=== PATIENT | female | born 1985 | race Caucasian/White ===

== ENCOUNTER 2018-11-14 19:00 | Emergency (ER) | payer MEDICAID ==
[~2018-11-14] VITALS: Ht 170.2 cm; Wt 54.0 kg
[~2018-11-14 19:00] MED LIST: ESOM20CA PO; HYDR1TAB PO; KEP500T PO; METO5TAB98 PO; PHE25R PR; PROM25SU46 RC; PROM25TA14 PO; ZOF4T PO; [UNRECOGNIZED DRUG - CODE] MT
[2018-11-14] MEDS ORDERED: diphenhydrAMINE 50 mg/ml inj IV ONE (20:00)
[2018-11-14] MEDS ORDERED: normal saline 1000ML IV soln IVB ONE (20:00)
[2018-11-14] MEDS ORDERED: haloperidol lactate 5mg/ml inj IM ONE ×2 (20:00→20:20)
[2018-11-14] MEDS ORDERED: ondansetron/PF 4mg/2ml inj IV ONE (20:00)
[2018-11-14] MEDS ORDERED: levetiracetam inj 1,000 MG in normal saline 100ml IV soln 90 ML IV STA (20:27)
[2018-11-14] MEDS ORDERED: levetiracetam-NS 1000mg/100ml 100 ML IV STA (20:30)
[2018-11-14 20:41] LABS: BASOPHILS % (AUTO) 0.1 % (0-1); EOSINOPHILS % (AUTO) 0 % (0-6); HEMATOCRIT 42.5 % (35.0-45.0); HEMOGLOBIN 14.3 g/dl (12.0-16.0); LYMPHOCYTES # (AUTO) 0.9 X10'3 (1.1-4.8); LYMPHOCYTES % (AUTO) 6.2 % (21-51); MEAN CORPUSCULAR HEMOGLOBIN 30.7 PG (27.0-31.0); MEAN CORPUSCULAR HGB CONC 33.7 g/dL (33.0-36.5); MEAN PLATELET VOLUME 7.8 FL (7.4-10.4); MONOCYTES # (AUTO) 0.6 X10'3 (0-0.9); MONOCYTES % (AUTO) 3.9 % (2-12); NEUTROPHILS # (AUTO) 12.7 X10'3 (1.8-7.7); NEUTROPHILS % (AUTO) 89.8 % (42-75); PLATELET COUNT 285 X10'3 (140-440); RED BLOOD COUNT 4.67 X10'6 (4.20-5.60); RED CELL DISTRIBUTION WIDTH 13.1 % (11.5-14.5); WHITE BLOOD COUNT 14.1 X10'3 (4.5-11.0)
[2018-11-14 20:52] LABS: ANION GAP 9 (8-16); BLOOD UREA NITROGEN 12 MG/DL (7-18); BUN/CREATININE RATIO 17.4 (6.6-38.0); CHLORIDE 98 MMOL/L (99-107); CREATININE 0.69 MG/DL (0.40-0.90); GLUCOSE 122 MG/DL (70-104); POTASSIUM 3.3 MMOL/L (3.5-5.1); SODIUM 136 MMOL/L (135-145); TOTAL CARBON DIOXIDE 29.4 MMOL/L (24-32)
[2018-11-14 20:53] LABS: ALANINE AMINOTRANSFERASE 16 U/L (12-78); ALBUMIN 3.9 G/DL (3.4-5.0); ALBUMIN/GLOBULIN RATIO 1.2 (1.1-1.5); ALKALINE PHOSPHATASE 74 IU/L (46-116); ASPARTATE AMINO TRANSFERASE 15 U/L (10-37); BILIRUBIN,TOTAL 0.5 MG/DL (0.1-1.0); CALCIUM 9.2 MG/DL (8.5-10.1); LIPASE 78 U/L (73-393); TOTAL PROTEIN 7.1 G/DL (6.4-8.2); eGFR > 90 ML/MIN
[2018-11-14] MEDS ORDERED: ONDA4TAB6 PO (21:20)
[2018-11-14] MEDS ORDERED: PHE25R PR (22:07)
[2018-11-14 22:09] VITALS: BP 112/65
== END 2018-11-14 22:18 | disposition home or self-care (01) ==
LOC: ER 19:00
DX: G43.A0 Cyclical vomiting, in migraine, not intractable (principal); G40.909 Epilepsy, unspecified, not intractable, without status epilepticus; I10 Essential (primary) hypertension; F12.90 Cannabis use, unspecified, uncomplicated; Z56.0 Unemployment, unspecified; Z90.49 Acquired absence of other specified parts of digestive tract; Z98.51 Tubal ligation status; Z88.5 Allergy status to narcotic agent; Z88.8 Allergy status to other drugs, medicaments and biological substances; Z79.899 Other long term (current) drug therapy
CPT/HCPCS: 36415; 71045; 80053; 83690; 85025; 93005; 96365; 96372; 96375; 99284; J1200; J1630; J1953; J2405; J7030

== ENCOUNTER 2018-11-21 07:09 | Inpatient (IN) | payer MEDICAID | END 2018-11-24 13:19 | disposition home or self-care (01) | LOC: ER 07:09 → ED HOLD 16:17 → SUR 3N 19:05 ==

== ENCOUNTER 2019-01-13 17:24 | Emergency (ER) | payer MEDICAID ==
[~2019-01-13] VITALS: Ht 170.2 cm; Wt 53.2 kg
[~2019-01-13 17:24] MED LIST changes: +BUSP10TA3 PO; -ESOM20CA PO; -HYDR1TAB PO; -METO5TAB98 PO; +METR500T PO; +MULT-933 PO; +ONDA8TAB13 PO; -PHE25R PR; -PROM25SU46 RC; -PROM25TA14 PO; +TRAZ-218 PO; -ZOF4T PO; -[UNRECOGNIZED DRUG - CODE] MT
[2019-01-13] MEDS ORDERED: levetiracetam inj 1,500 MG in normal saline 100ml IV soln 85 ML IV ONE (17:35)
[2019-01-13] MEDS ORDERED: LORazepam 2 mg/ml vial IM ONE (17:35)
[2019-01-13] MEDS ORDERED: fentaNYL/PF 50MCG/1 ML 2ML syringe IV ONE (17:45)
[2019-01-13] MEDS ORDERED: metoclopramide 5 mg/ml inj IV ONE (17:45)
[2019-01-13] MEDS ORDERED: normal saline 1000ML IV soln IVB ONE (17:45)
[2019-01-13] MEDS ORDERED: diphenhydrAMINE 50 mg/ml inj IV ONE (17:45)
[2019-01-13] MEDS ORDERED: ondansetron/PF 4mg/2ml inj IV ONE (17:45)
[2019-01-13 18:17] LABS: BASOPHILS # (AUTO) 0.1 X10'3 (0-0.2); BASOPHILS % (AUTO) 0.4 % (0-1); EOSINOPHILS % (AUTO) 0.1 % (0-6); HEMATOCRIT 47.9 % (35.0-45.0); HEMOGLOBIN 16.7 g/dl (12.0-16.0); LYMPHOCYTES # (AUTO) 2.3 X10'3 (1.1-4.8); LYMPHOCYTES % (AUTO) 19.3 % (21-51); MEAN CORPUSCULAR HEMOGLOBIN 30.3 PG (27.0-31.0); MEAN CORPUSCULAR HGB CONC 34.9 g/dL (33.0-36.5); MEAN CORPUSCULAR VOLUME 86.8 FL (78-98); MEAN PLATELET VOLUME 7.7 FL (7.4-10.4); MONOCYTES # (AUTO) 0.9 X10'3 (0-0.9); MONOCYTES % (AUTO) 7.4 % (2-12); NEUTROPHILS # (AUTO) 8.7 X10'3 (1.8-7.7); NEUTROPHILS % (AUTO) 72.8 % (42-75); PLATELET COUNT 523 X10'3 (140-440); RED BLOOD COUNT 5.52 X10'6 (4.20-5.60); RED CELL DISTRIBUTION WIDTH 12.9 % (11.5-14.5)
[2019-01-13 18:40] LABS: ALANINE AMINOTRANSFERASE 21 U/L (12-78); ALBUMIN 4.6 G/DL (3.4-5.0); ALBUMIN/GLOBULIN RATIO 1.3 (1.1-1.5); ALKALINE PHOSPHATASE 116 IU/L (46-116); ANION GAP 11 (8-16); ASPARTATE AMINO TRANSFERASE 10 U/L (10-37); BILIRUBIN,TOTAL 0.5 MG/DL (0.1-1.0); BLOOD UREA NITROGEN 4 MG/DL (7-18); BUN/CREATININE RATIO 5.1 (6.6-38.0); CALCIUM 10.5 MG/DL (8.5-10.1); CHLORIDE 90 MMOL/L (99-107); CREATININE 0.79 MG/DL (0.40-0.90); GLUCOSE 132 MG/DL (70-104); MAGNESIUM 1.9 MG/DL (1.5-2.4); SODIUM 133 MMOL/L (135-145); TOTAL CARBON DIOXIDE 32.3 MMOL/L (24-32); TOTAL PROTEIN 8.2 G/DL (6.4-8.2); eGFR 83 ML/MIN
[2019-01-13 18:50] LABS: POTASSIUM 2.7 MMOL/L (3.5-5.1)
[2019-01-13] MEDS ORDERED: potassium Cl 10 mEq/100mL bag IV ONE (19:00)
[2019-01-13] MEDS ORDERED: potassium 10mEq/100ml NS w/LIDOcaine (10mg/bag) IV ONE (19:01)
[2019-01-13] MEDS: potassium 10mEq/100ml NS w/LIDOcaine (10mg/bag) IV SCH ×2 (19:29→20:19)
[2019-01-13] MEDS ORDERED: normal saline 1000ml 1,000 ML IV ONE (19:40)
[2019-01-13 19:43] LABS: URINE HCG NEGATIVE (NEG)
[2019-01-13 19:48] LABS: CLARITY,URINE CLEAR (Clear); COLOR,URINE STRAW (Yellow); GLUCOSE, URINE NEGATIVE (Neg); KETONES,URINE NEGATIVE (Neg); LEUKOCYTE ESTERASE ,URINE NEGATIVE (Neg); NITRITES, URINE NEGATIVE (Neg); OCCULT BLOOD,URINE NEGATIVE (Neg); PROTEIN,URINE NEGATIVE (Neg); UROBILINOGEN,URINE 0.2 E.U/dL (0.2-1.0)
[2019-01-13 19:53] LABS: UA COLLECTION TYPE STRAIGHT CATH
[2019-01-13] MEDS ORDERED: ketorolac trometh. 30mg/ml inj. IV ONE (20:10)
[2019-01-13 20:12] LABS: URINE AMPHETAMINE SCREEN NEGATIVE (Neg); URINE BARBITUATE SCREEN NEGATIVE (Neg); URINE BENZODIAZEPINES SCREEN NEGATIVE (Neg); URINE CANNABINOID SCREEN POSITIVE (Neg); URINE COCAINE SCREEN NEGATIVE (Neg); URINE METHADONE SCREEN NEGATIVE (Neg); URINE OPIATE SCREEN NEGATIVE (Neg); URINE PHENCYCLIDINE SCREEN NEGATIVE (Neg)
[2019-01-13 20:41] VITALS: BP 125/88
[2019-01-13 20:50] LABS: INR 1.2 INR; PARTIAL THROMBOPLASTIN TIME 26 SECONDS (22-32)
[2019-01-13] MEDS ORDERED: ONDA8TAB6 PO (21:01)
[2019-01-13] MEDS ORDERED: PHE25R PR (21:01)
[2019-01-13] MEDS ORDERED: POTA20TA19 PO (21:01)
== END 2019-01-13 21:26 | disposition home or self-care (01) ==
LOC: ER 17:25
DX: G43.A0 Cyclical vomiting, in migraine, not intractable (principal); R10.84 Generalized abdominal pain; I10 Essential (primary) hypertension; F12.90 Cannabis use, unspecified, uncomplicated; Z56.0 Unemployment, unspecified; Z90.49 Acquired absence of other specified parts of digestive tract; Z98.51 Tubal ligation status; Z88.5 Allergy status to narcotic agent; Z88.8 Allergy status to other drugs, medicaments and biological substances; Z79.899 Other long term (current) drug therapy
CPT/HCPCS: 36415; 71045; 71046; 80053; 80305; 81003; 81025; 83605; 83735; 84145; 84484; 85025; 85610; 85730; 87040; 93005; 96361; 96365; 96372; 96375; 99284; J1200; J1885; J1953; J2060; J2405; J2765; J3010; J3480; J7030

== ENCOUNTER 2019-02-11 08:23 | Emergency (ER) | payer MEDICAID ==
[~2019-02-11] VITALS: Ht 170.2 cm; Wt 54.5 kg
[~2019-02-11 08:23] MED LIST changes: +ONDA8TAB6 PO; +PHE25R PR; +POTA20TA19 PO; -TRAZ-218 PO; +TRAZ-251 PO
[2019-02-11] MEDS ORDERED: ondansetron/PF 4mg/2ml inj IV ONE (08:30)
[2019-02-11] MEDS ORDERED: metoclopramide 5 mg/ml inj IV ONE (08:30)
[2019-02-11] MEDS ORDERED: levetiracetam inj 1,000 MG in normal saline 100ml IV soln 90 ML IV ONE (08:30)
[2019-02-11] MEDS ORDERED: normal saline 1000ML IV soln IVB ONE ×2 (08:30)
[2019-02-11] MEDS ORDERED: LORazepam 2 mg/ml vial IV ONE (08:30)
[2019-02-11] MEDS ORDERED: diphenhydrAMINE 50 mg/ml inj IV ONE (08:35)
[2019-02-11] MEDS ORDERED: fentaNYL/PF 50MCG/1 ML 2ML syringe IV ONE ×2 (09:05→11:30)
[2019-02-11 09:25] LABS: ALANINE AMINOTRANSFERASE 19 U/L (12-78); ALBUMIN/GLOBULIN RATIO 1.3 (1.1-1.5); ALKALINE PHOSPHATASE 87 IU/L (46-116); ANION GAP 14 (8-16); ASPARTATE AMINO TRANSFERASE 17 U/L (10-37); BILIRUBIN,TOTAL 0.5 MG/DL (0.1-1.0); BLOOD UREA NITROGEN 10 MG/DL (7-18); BUN/CREATININE RATIO 10.9 (6.6-38.0); CALCIUM 9.8 MG/DL (8.5-10.1); CHLORIDE 100 MMOL/L (99-107); CREATININE 0.92 MG/DL (0.40-0.90); GLUCOSE 155 MG/DL (70-104); POTASSIUM 3.2 MMOL/L (3.5-5.1); SODIUM 141 MMOL/L (135-145); eGFR 69 ML/MIN
[2019-02-11 09:32] LABS: LIPASE 51 U/L (73-393)
[2019-02-11 09:33] LABS: BETA HCG,QUANTITATIVE < 1.0 mIU/ml
[2019-02-11] MEDS ORDERED: potassium 10mEq/100ml NS w/LIDOcaine (10mg/bag) IV ONE (09:40)
[2019-02-11 10:44] LABS: BASOPHILS % (AUTO) 0.3 % (0-1); EOSINOPHILS % (AUTO) 0 % (0-6); HEMATOCRIT 31.8 % (35.0-45.0); HEMOGLOBIN 11.3 g/dl (12.0-16.0); LYMPHOCYTES # (AUTO) 0.4 X10'3 (1.1-4.8); LYMPHOCYTES % (AUTO) 3.9 % (21-51); MEAN CORPUSCULAR HEMOGLOBIN 31.5 PG (27.0-31.0); MEAN CORPUSCULAR HGB CONC 35.4 g/dL (33.0-36.5); MEAN CORPUSCULAR VOLUME 89.1 FL (78-98); MEAN PLATELET VOLUME 8.1 FL (7.4-10.4); MONOCYTES # (AUTO) 0.4 X10'3 (0-0.9); MONOCYTES % (AUTO) 3.3 % (2-12); NEUTROPHILS % (AUTO) 92.5 % (42-75); PLATELET COUNT 266 X10'3 (140-440); RED BLOOD COUNT 3.57 X10'6 (4.20-5.60); WHITE BLOOD COUNT 10.9 X10'3 (4.5-11.0)
[2019-02-11 10:54] LABS: URINE AMPHETAMINE SCREEN NEGATIVE (Neg); URINE BARBITUATE SCREEN NEGATIVE (Neg); URINE BENZODIAZEPINES SCREEN NEGATIVE (Neg); URINE CANNABINOID SCREEN POSITIVE (Neg); URINE COCAINE SCREEN NEGATIVE (Neg); URINE METHADONE SCREEN NEGATIVE (Neg); URINE OPIATE SCREEN NEGATIVE (Neg); URINE PHENCYCLIDINE SCREEN NEGATIVE (Neg)
[2019-02-11 10:55] LABS: CLARITY,URINE SLIGHTLY CLOUDY (Clear); COLOR,URINE YELLOW (Yellow); GLUCOSE, URINE NEGATIVE (Neg); KETONES,URINE 40 mg/dl (Neg); LEUKOCYTE ESTERASE ,URINE NEGATIVE (Neg); NITRITES, URINE NEGATIVE (Neg); OCCULT BLOOD,URINE NEGATIVE (Neg); PROTEIN,URINE 100 mg/dl (Neg); UROBILINOGEN,URINE 0.2 E.U/dL (0.2-1.0)
[2019-02-11 11:14] LABS: UA COLLECTION TYPE STRAIGHT CATH
[2019-02-11 11:21] LABS: SQUAMOUS EPITHELIAL CELL,UR MANY /LPF (FEW)
[2019-02-11 11:22] LABS: AMORPHOUS PHOSPHATES 1+
[2019-02-11 11:23] LABS: BACTERIA,URINE FEW /HPF (Neg); RBC,URINE NONE SEEN /HPF (0-2)
[2019-02-11 11:24] LABS: WBC,URINE NONE SEEN /HPF (0-4)
[2019-02-11] MEDS ORDERED: ketorolac trometh. 30mg/ml inj. IV ONE (11:30)
[2019-02-11] MEDS ORDERED: dextrose 5%-normal saline 1,000 ML IV ONE (11:30)
[2019-02-11 12:43] VITALS: BP 133/96
== END 2019-02-11 12:46 | disposition home or self-care (01) ==
LOC: ER 08:24
DX: G43.A0 Cyclical vomiting, in migraine, not intractable (principal); E87.6 Hypokalemia; R10.84 Generalized abdominal pain; F12.90 Cannabis use, unspecified, uncomplicated; I10 Essential (primary) hypertension; Z56.0 Unemployment, unspecified; Z90.49 Acquired absence of other specified parts of digestive tract; Z98.51 Tubal ligation status; Z88.5 Allergy status to narcotic agent; Z88.8 Allergy status to other drugs, medicaments and biological substances; Z79.899 Other long term (current) drug therapy
CPT/HCPCS: 36415; 80053; 80305; 81001; 82948; 83690; 84702; 85025; 96361; 96365; 96367; 96375; 96376; 99284; J1200; J1885; J1953; J2060; J2405; J2765; J3010; J3480; J7030; J7042

== ENCOUNTER 2019-04-30 07:18 | Emergency (ER) | payer MEDICAID ==
[~2019-04-30] VITALS: Ht 170.2 cm; Wt 65.0 kg
[~2019-04-30 07:18] MED LIST changes: -POTA20TA19 PO
[2019-04-30] MEDS ORDERED: haloperidol lactate 5mg/ml inj IM ONE (07:40)
[2019-04-30] MEDS ORDERED: diphenhydrAMINE 50 mg/ml inj IM ONE (07:40)
[2019-04-30] MEDS ORDERED: LORazepam 2 mg/ml vial IM ONE (07:40)
[2019-04-30 07:49] LABS: BASOPHILS # (AUTO) 0.1 X10'3 (0-0.2); BASOPHILS % (AUTO) 0.5 % (0-1); EOSINOPHILS % (AUTO) 0.1 % (0-6); HEMATOCRIT 47.9 % (35.0-45.0); LYMPHOCYTES # (AUTO) 1.4 X10'3 (1.1-4.8); LYMPHOCYTES % (AUTO) 8.2 % (21-51); MEAN CORPUSCULAR HEMOGLOBIN 29.6 PG (27.0-31.0); MEAN CORPUSCULAR HGB CONC 33.5 g/dL (33.0-36.5); MEAN CORPUSCULAR VOLUME 88.3 FL (78-98); MEAN PLATELET VOLUME 7.6 FL (7.4-10.4); MONOCYTES # (AUTO) 0.6 X10'3 (0-0.9); MONOCYTES % (AUTO) 3.6 % (2-12); NEUTROPHILS # (AUTO) 14.8 X10'3 (1.8-7.7); NEUTROPHILS % (AUTO) 87.6 % (42-75); PLATELET COUNT 467 X10'3 (140-440); RED BLOOD COUNT 5.42 X10'6 (4.20-5.60); RED CELL DISTRIBUTION WIDTH 13.6 % (11.5-14.5); WHITE BLOOD COUNT 16.9 X10'3 (4.5-11.0)
[2019-04-30 07:57] LABS: ANION GAP 14 (8-16); BILIRUBIN,TOTAL 0.7 MG/DL (0.1-1.0); BLOOD UREA NITROGEN 7 MG/DL (7-18); BUN/CREATININE RATIO 6.5 (6.6-38.0); CHLORIDE 98 MMOL/L (99-107); CREATININE 1.08 MG/DL (0.40-0.90); GLUCOSE 150 MG/DL (70-104); POTASSIUM 3.6 MMOL/L (3.5-5.1); SODIUM 139 MMOL/L (135-145); TOTAL CARBON DIOXIDE 27.4 MMOL/L (24-32); eGFR 58 ML/MIN
[2019-04-30 07:58] LABS: ALANINE AMINOTRANSFERASE 26 U/L (12-78); ALBUMIN 4.1 G/DL (3.4-5.0); ALBUMIN/GLOBULIN RATIO 1.1 (1.1-1.5); ALKALINE PHOSPHATASE 97 IU/L (46-116); ASPARTATE AMINO TRANSFERASE 26 U/L (10-37); LIPASE 80 U/L (73-393); TOTAL PROTEIN 7.7 G/DL (6.4-8.2)
[2019-04-30] MEDS ORDERED: ketorolac trometh inj. 60 MG/2 ML VIAL IM ONE (08:20)
[2019-04-30] MEDS ORDERED: ketorolac trometh. 30mg/ml inj. IM ONE (08:25)
[2019-04-30] MEDS ORDERED: levetiracetam 250mg tablet PO ONE (09:30)
[2019-04-30 09:49] VITALS: BP 117/78
[2019-04-30] MEDS ORDERED: ONDA4TAB12 PO (09:51)
[2019-04-30] MEDS ORDERED: PROM25SU46 RC (09:52)
== END 2019-04-30 10:02 | disposition home or self-care (01) ==
LOC: ER 07:20
DX: G43.A0 Cyclical vomiting, in migraine, not intractable (principal); R56.9 Unspecified convulsions; I10 Essential (primary) hypertension; F41.9 Anxiety disorder, unspecified; F12.90 Cannabis use, unspecified, uncomplicated; Z90.49 Acquired absence of other specified parts of digestive tract; Z98.51 Tubal ligation status; Z88.5 Allergy status to narcotic agent; Z88.8 Allergy status to other drugs, medicaments and biological substances; Z79.899 Other long term (current) drug therapy; Z56.0 Unemployment, unspecified
CPT/HCPCS: 36415; 80053; 83690; 85025; 96372; 99284; J1200; J1630; J1885; J2060

== ENCOUNTER 2019-05-03 21:12 | Inpatient (IN) | payer MEDICAID ==
[~2019-05-03] VITALS: Ht 170.2 cm; Wt 58.0 kg
[~2019-05-03 21:12] MED LIST changes: +ONDA4TAB12 PO; +PROM25SU46 RC
--- NOTE | 2019-05-03 21:42 | NUR ---
DISCUSSED PATIENT'S FALL AND HEAD CHIN AND LEFT SHOULDER ABRASIONS WITH DR GARCIA AND PATIENT'S SEIZURE STATUS
[2019-05-03] MEDS ORDERED: LORazepam 2 mg/ml vial IV ONE (22:35)
[2019-05-03] MEDS ORDERED: ondansetron/PF 4mg/2ml inj IV ONE (22:35)
[2019-05-03] MEDS ORDERED: levetiracetam inj 500 MG in normal saline 1000ml 100 ML IV ONE ×6 (22:35)
[2019-05-03] MEDS ORDERED: normal saline 1000ML IV soln IVB ONE (22:35)
[2019-05-03] MEDS ORDERED: Levetiracetam-NS 500mg/100ml 100 ML IV ONE (22:36)
[2019-05-03 22:52] LABS: BASOPHILS # (AUTO) 0.1 X10'3 (0-0.2); BASOPHILS % (AUTO) 0.6 % (0-1); EOSINOPHILS % (AUTO) 0.3 % (0-6); HEMATOCRIT 39.7 % (35.0-45.0); HEMOGLOBIN 13.4 g/dl (12.0-16.0); LYMPHOCYTES # (AUTO) 1.5 X10'3 (1.1-4.8); MEAN CORPUSCULAR HEMOGLOBIN 29.8 PG (27.0-31.0); MEAN CORPUSCULAR HGB CONC 33.8 g/dL (33.0-36.5); MEAN CORPUSCULAR VOLUME 88.4 FL (78-98); MONOCYTES % (AUTO) 5.2 % (2-12); NEUTROPHILS # (AUTO) 16.3 X10'3 (1.8-7.7); NEUTROPHILS % (AUTO) 85.9 % (42-75); PLATELET COUNT 348 X10'3 (140-440); RED BLOOD COUNT 4.49 X10'6 (4.20-5.60); RED CELL DISTRIBUTION WIDTH 13.8 % (11.5-14.5); WHITE BLOOD COUNT 18.9 X10'3 (4.5-11.0)
[2019-05-03] MEDS ORDERED: ketorolac trometh. 30mg/ml inj. IV ONE (23:05)
[2019-05-03] MEDS ORDERED: fentaNYL/PF 50MCG/1 ML 2ML syringe IV ONE (23:05)
[2019-05-03 23:08] LABS: ALANINE AMINOTRANSFERASE 24 U/L (12-78); ALBUMIN 3.4 G/DL (3.4-5.0); ALBUMIN/GLOBULIN RATIO 1.3 (1.1-1.5); ALKALINE PHOSPHATASE 75 IU/L (46-116); ANION GAP 4 (8-16); ASPARTATE AMINO TRANSFERASE 20 U/L (10-37); BILIRUBIN,TOTAL 0.4 MG/DL (0.1-1.0); BLOOD UREA NITROGEN 4 MG/DL (7-18); BUN/CREATININE RATIO 5.6 (6.6-38.0); CALCIUM 8.7 MG/DL (8.5-10.1); CHLORIDE 103 MMOL/L (99-107); CREATININE 0.71 MG/DL (0.40-0.90); GLUCOSE 105 MG/DL (70-104); SODIUM 141 MMOL/L (135-145); TOTAL PROTEIN 6.1 G/DL (6.4-8.2); eGFR > 90 ML/MIN
[2019-05-03 23:11] LABS: POTASSIUM 2.8 MMOL/L (3.5-5.1)
[2019-05-03] MEDS ORDERED: potassium Cl 20 mEq SR tablet PO ONE (23:25)
[2019-05-03] MEDS ORDERED: magnesium oxide 400mg tablet PO ONE (23:25)
[2019-05-03 23:40] LABS: MAGNESIUM 2.2 MG/DL (1.5-2.4)
[2019-05-03] MEDS ORDERED: METO10TA3 PO (23:40)
[2019-05-03] MEDS ORDERED: LEVE500T PO (23:41)
[2019-05-04 00:38] LABS: ETHANOL < 0.010 GM/DL (0.0-0.010)
[2019-05-04] MEDS ORDERED: fentaNYL/PF 50MCG/1 ML 2ML syringe IV ONE (01:00)
[2019-05-04] MEDS ORDERED: normal saline 1000ml 1,000 ML IV SCH (01:44)
[2019-05-04] MEDS ORDERED: magnesium 2GM in 50ml NS 50 ML IV PRN (01:45)
[2019-05-04] MEDS ORDERED: potassium CL 10mEq/100ml bag 100 ML IV PRN ×2 (01:45)
[2019-05-04] MEDS ORDERED: magnesium Cl slow-release 64mg tablet PO PRN (01:45)
[2019-05-04] MEDS ORDERED: ondansetron/PF 4mg/2ml inj IV PRN (01:45)
[2019-05-04] MEDS ORDERED: metoclopramide 5 mg/ml inj IV PRN (01:45)
[2019-05-04] MEDS ORDERED: magnesium 4gm in 100ml NS 100 ML IV PRN (01:45)
[2019-05-04] MEDS ORDERED: potassium Cl 20 mEq SR tablet PO PRN (01:45)
[2019-05-04] MEDS ORDERED: acetaminophen 325mg tablet PO PRN (01:45)
[2019-05-04 02:35] VITALS: BP 153/110
[2019-05-04] MEDS: HYDROcodone/acetaminophen 5mg/325mg tablet PO PRN ×4 (02:48→20:20)
--- NOTE | 2019-05-04 02:48 | NUR ---
pt states pain 10/10 pain generalized , no injury, admit for seizures. orders for [place] only.
[2019-05-04] MEDS ORDERED: LORazepam 2 mg/ml vial IM PRN (03:00)
[2019-05-04 03:12] LABS: URINE AMPHETAMINE SCREEN NEGATIVE (Neg); URINE BARBITUATE SCREEN NEGATIVE (Neg); URINE BENZODIAZEPINES SCREEN NEGATIVE (Neg); URINE CANNABINOID SCREEN POSITIVE (Neg); URINE COCAINE SCREEN NEGATIVE (Neg); URINE METHADONE SCREEN NEGATIVE (Neg); URINE OPIATE SCREEN NEGATIVE (Neg); URINE PHENCYCLIDINE SCREEN NEGATIVE (Neg)
[2019-05-04 03:14] LABS: CLARITY,URINE SLIGHTLY CLOUDY (Clear); COLOR,URINE YELLOW (Yellow); GLUCOSE, URINE NEGATIVE (Neg); KETONES,URINE NEGATIVE (Neg); LEUKOCYTE ESTERASE ,URINE NEGATIVE (Neg); NITRITES, URINE POSITIVE (Neg); OCCULT BLOOD,URINE NEGATIVE (Neg); PROTEIN,URINE NEGATIVE (Neg); UROBILINOGEN,URINE 0.2 E.U/dL (0.2-1.0)
[2019-05-04 03:22] LABS: UA COLLECTION TYPE CLN CATCH MIDSTREAM
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
[2019-05-04 03:27] LABS: BACTERIA,URINE 4+ /HPF (Neg); MUCUS STRANDS FEW /LPF (Neg); RBC,URINE 0-2 /HPF (0-2); SQUAMOUS EPITHELIAL CELL,UR FEW /LPF (FEW); WBC,URINE 0-4 /HPF (0-4)
[2019-05-04 03:28] LABS: AMORPHOUS PHOSPHATES 2+
[2019-05-04] MEDS: potassium Cl 20 mEq SR tablet PO PRN ×2 (04:01→07:50)
--- NOTE | 2019-05-04 04:08 | NUR ---
GAVE 40mEq POTASSIUM PER PROTOCOL. PT REFUSED TO EAT ANYTHING FOR UPSET STOMACH BEFOREHAND. WAS OFFERED YOGURT, 7UP, JELLO, SALTINE CRACKERS, JOSE DAVID CRACKERS, ICE CHIPS.
[2019-05-04] MEDS ORDERED: traZODone 50mg tablet PO PRN (05:10)
--- NOTE | 2019-05-04 06:31 | NUR ---
REPORT GIVEN TO SAILAJA SIMMONS.
[2019-05-04 06:47] VITALS: BP 150/108
[2019-05-04] MEDS: docusate sod 100mg capsule PO SCH ×2 (07:50→20:00)
[2019-05-04] MEDS: levetiracetam 250mg tablet PO SCH ×2 (07:50→20:18)
[2019-05-04] MEDS: K and/or MAG REPLACEMENT MC SCH (07:53)
[2019-05-04 10:39] VITALS: BP 127/91
--- NOTE | 2019-05-04 12:30 | NUR ---
Malnutrition consult: Pt admit s/p seizure and fall. hx cyclic vomiting syndrome w/ gastroparesis. Pt seen by RD and reports UBW 120# now down to 110# over past few weeks but scaled wt is 127# this admit. Pt has no visible signs of muscle/fat wasting, no wt loss hx, and no significant weakness. Fails to meet minimum malnutrition criteria at this time. RD provide written gastroparesis diet ed w/ RD contact information; pt very passive during ed. Wanting to leave per RN today; will continue to monitor. Addendum: 05/04/19 at [address] Amended: Links added.
[2019-05-04] MEDS ORDERED: HYDR-4383 PO (12:51)
[2019-05-04 18:00] VITALS: BP 124/82
--- NOTE | 2019-05-04 18:30 | NUR ---
Patient in room ORTHO 4021. I have received report from naif Whittaker and had the opportunity to ask questions and assume patient care.
[2019-05-04] MEDS ORDERED: temazepam 15mg capsule PO PRN (21:00)
[2019-05-04] MEDS ORDERED: famotidine 20mg tablet PO SCH (21:00)
[2019-05-04 22:00] VITALS: BP 142/100
[2019-05-05] MEDS: HYDROcodone/acetaminophen 5mg/325mg tablet PO PRN ×2 (02:26→06:54)
[2019-05-05 06:00] VITALS: BP 136/99
--- NOTE | 2019-05-05 06:25 | NUR ---
Problems reprioritized. Patient report given, questions answered & plan of care reviewed with SAILAJA BRYANT.
--- NOTE | 2019-05-05 06:35 | NUR ---
received report from naif card
[2019-05-05] MEDS: levetiracetam 250mg tablet PO SCH (06:55)
[2019-05-05 07:26] LABS: ALBUMIN 3.4 G/DL (3.4-5.0); ANION GAP 8 (8-16); BLOOD UREA NITROGEN 4 MG/DL (7-18); BUN/CREATININE RATIO 5.3 (6.6-38.0); CALCIUM 9.3 MG/DL (8.5-10.1); CHLORIDE 103 MMOL/L (99-107); CREATININE 0.76 MG/DL (0.40-0.90); GLUCOSE 84 MG/DL (70-104); MAGNESIUM 1.9 MG/DL (1.5-2.4); POTASSIUM 4.2 MMOL/L (3.5-5.1); SODIUM 139 MMOL/L (135-145); TOTAL CARBON DIOXIDE 28.3 MMOL/L (24-32); eGFR 87 ML/MIN
[2019-05-05] MEDS: K and/or MAG REPLACEMENT MC SCH (07:43)
[2019-05-05] MEDS: docusate sod 100mg capsule PO SCH (07:44)
[2019-05-05 10:00] VITALS: BP 148/100
--- NOTE | 2019-05-05 10:42 | NUR ---
pt d/c with instructions, understanding of instructions and w/all belongings walking out accompanied by to private vehicle to go home and f/u w/pcp and dr. robles d/c photos are in chart
== END 2019-05-05 10:30 | disposition home or self-care (01) | DRG 53 ==
LOC: ER 21:12 → ORTHO 4S 05-04 02:37
PROVIDERS: ADMIT Internal Medicine; ATTEND Internal Medicine
DX: G40.89 Other seizures (principal); E87.6 Hypokalemia; F12.90 Cannabis use, unspecified, uncomplicated; G43.A0 Cyclical vomiting, in migraine, not intractable; F41.9 Anxiety disorder, unspecified; I10 Essential (primary) hypertension; W18.39XA Other fall on same level, initial encounter; Z79.899 Other long term (current) drug therapy; Z85.41 Personal history of malignant neoplasm of cervix uteri; Z90.49 Acquired absence of other specified parts of digestive tract; Z88.5 Allergy status to narcotic agent; Z88.8 Allergy status to other drugs, medicaments and biological substances; Z98.51 Tubal ligation status; Y93.E2 Activity, laundry; Y92.89 Other specified places as the place of occurrence of the external cause; Y99.8 Other external cause status
CPT/HCPCS: 36415; 70450; 80048; 80053; 80305; 80320; 81001; 83735; 84132; 85025; 87077; 87081; 87088; 87186; 96365; 96375; 97116; 97161; 97530; 99285; G0378; J1885; J1953; J2060; J2405; J3010; J7030

== ENCOUNTER 2019-05-29 11:38 | Emergency (ER) | payer MEDICAID ==
[~2019-05-29] VITALS: Ht 170.2 cm; Wt 52.3 kg
[~2019-05-29 11:38] MED LIST changes: -BUSP10TA3 PO; -KEP500T PO; +LEVE500T PO; +METO10TA3 PO; -METR500T PO; -MULT-933 PO; -ONDA4TAB12 PO; -ONDA8TAB13 PO; -ONDA8TAB6 PO; -PHE25R PR; -PROM25SU46 RC
[2019-05-29] MEDS ORDERED: levetiracetam inj 1,000 MG in normal saline 100ml IV soln 90 ML IV STA (12:24)
[2019-05-29] MEDS ORDERED: diphenhydrAMINE 50 mg/ml inj IV ONE (12:25)
[2019-05-29] MEDS ORDERED: normal saline 1000ML IV soln IVB ONE ×2 (12:25)
[2019-05-29] MEDS ORDERED: metoclopramide 5 mg/ml inj IV ONE (12:25)
[2019-05-29] MEDS ORDERED: levetiracetam-NS 1000mg/100ml 100 ML IV ONE (12:30)
[2019-05-29 12:52] LABS: BASOPHILS % (AUTO) 0.4 % (0-1); EOSINOPHILS % (AUTO) 0 % (0-6); HEMATOCRIT 42.3 % (35.0-45.0); HEMOGLOBIN 14.7 g/dl (12.0-16.0); LYMPHOCYTES % (AUTO) 8.4 % (21-51); MEAN CORPUSCULAR HEMOGLOBIN 30.8 PG (27.0-31.0); MEAN CORPUSCULAR HGB CONC 34.7 g/dL (33.0-36.5); MEAN CORPUSCULAR VOLUME 88.8 FL (78-98); MEAN PLATELET VOLUME 7.3 FL (7.4-10.4); MONOCYTES # (AUTO) 0.5 X10'3 (0-0.9); MONOCYTES % (AUTO) 3.8 % (2-12); NEUTROPHILS # (AUTO) 10.6 X10'3 (1.8-7.7); NEUTROPHILS % (AUTO) 87.4 % (42-75); PLATELET COUNT 394 X10'3 (140-440); RED BLOOD COUNT 4.76 X10'6 (4.20-5.60); RED CELL DISTRIBUTION WIDTH 13.7 % (11.5-14.5); WHITE BLOOD COUNT 12.2 X10'3 (4.5-11.0)
[2019-05-29 13:00] LABS: ALANINE AMINOTRANSFERASE 16 U/L (12-78); ALBUMIN 3.9 G/DL (3.4-5.0); ALBUMIN/GLOBULIN RATIO 1.1 (1.1-1.5); ALKALINE PHOSPHATASE 89 IU/L (46-116); ANION GAP 10 (8-16); ASPARTATE AMINO TRANSFERASE 15 U/L (10-37); BILIRUBIN,TOTAL 0.5 MG/DL (0.1-1.0); BLOOD UREA NITROGEN 3 MG/DL (7-18); BUN/CREATININE RATIO 4.5 (6.6-38.0); CALCIUM 9.5 MG/DL (8.5-10.1); CHLORIDE 104 MMOL/L (99-107); CREATININE 0.67 MG/DL (0.40-0.90); GLUCOSE 113 MG/DL (70-104); POTASSIUM 3.4 MMOL/L (3.5-5.1); SODIUM 139 MMOL/L (135-145); TOTAL CARBON DIOXIDE 24.8 MMOL/L (24-32); TOTAL PROTEIN 7.5 G/DL (6.4-8.2); eGFR > 90 ML/MIN
--- NOTE | 2019-05-29 13:04 | NUR ---
DR MCKEON AT
[2019-05-29] MEDS ORDERED: ketorolac tromethamine 15mg/ml inj. IV ONE (13:10)
[2019-05-29] MEDS ORDERED: LORazepam 2 mg/ml vial IV ONE (13:10)
[2019-05-29] MEDS ORDERED: ketorolac trometh. 30mg/ml inj. IV ONE (13:10)
[2019-05-29] MEDS ORDERED: levetiracetam 250mg tablet PO ONE (14:05)
[2019-05-29 15:33] VITALS: BP 132/91
== END 2019-05-29 15:36 | disposition home or self-care (01) ==
LOC: ER 11:39
DX: G40.909 Epilepsy, unspecified, not intractable, without status epilepticus (principal); G43.A0 Cyclical vomiting, in migraine, not intractable; R10.13 Epigastric pain; I10 Essential (primary) hypertension; F12.90 Cannabis use, unspecified, uncomplicated; Z56.0 Unemployment, unspecified; Z90.49 Acquired absence of other specified parts of digestive tract; Z98.51 Tubal ligation status; Z88.5 Allergy status to narcotic agent; Z88.8 Allergy status to other drugs, medicaments and biological substances; Z79.899 Other long term (current) drug therapy
CPT/HCPCS: 36415; 80053; 85025; 93005; 96361; 96374; 96375; 99284; J1200; J1885; J1953; J2060; J2765; J7030

== ENCOUNTER 2019-06-13 08:06 | Observation (INO) | payer MEDICAID ==
[~2019-06-13] VITALS: Ht 157.5 cm; Wt 45.0 kg
[2019-06-13] MEDS ORDERED: levetiracetam inj 1,000 MG in normal saline 100ml IV soln 90 ML IV STA (08:18)
[2019-06-13] MEDS ORDERED: diphenhydrAMINE 50 mg/ml inj IV ONE (08:20)
[2019-06-13] MEDS ORDERED: normal saline 1000ML IV soln IVB ONE (08:20)
[2019-06-13] MEDS ORDERED: metoclopramide 5 mg/ml inj IV ONE (08:20)
[2019-06-13] MEDS ORDERED: LORazepam 2 mg/ml vial IV ONE (08:20)
--- NOTE | 2019-06-13 08:45 | NUR ---
ATTEMPTED IV X2 WITH 2 RNS WITHOUT SUCCESS. PICC NURSE CALLED. AWARE.
--- NOTE | 2019-06-13 08:52 | NUR ---
PICC RN AT BEDSIDE. SIXTO HERE FROM PHARMACY.
[2019-06-13 09:00] LABS: BASOPHILS % (AUTO) 0.2 % (0-1); EOSINOPHILS # (AUTO) 0.1 X10'3 (0-0.9); EOSINOPHILS % (AUTO) 0.2 % (0-6); HEMATOCRIT 48.6 % (35.0-45.0); HEMOGLOBIN 16.9 g/dl (12.0-16.0); LYMPHOCYTES # (AUTO) 0.9 X10'3 (1.1-4.8); LYMPHOCYTES % (AUTO) 4.4 % (21-51); MEAN CORPUSCULAR HEMOGLOBIN 30.4 PG (27.0-31.0); MEAN CORPUSCULAR HGB CONC 34.8 g/dL (33.0-36.5); MEAN CORPUSCULAR VOLUME 87.4 FL (78-98); MEAN PLATELET VOLUME 7.6 FL (7.4-10.4); MONOCYTES # (AUTO) 1.4 X10'3 (0-0.9); NEUTROPHILS % (AUTO) 88.2 % (42-75); PLATELET COUNT 443 X10'3 (140-440); RED BLOOD COUNT 5.57 X10'6 (4.20-5.60); RED CELL DISTRIBUTION WIDTH 13.4 % (11.5-14.5); WHITE BLOOD COUNT 20.4 X10'3 (4.5-11.0)
--- NOTE | 2019-06-13 09:07 | NUR ---
picc rn at bedside, no iv access at this time, aware
[2019-06-13 09:15] LABS: ALANINE AMINOTRANSFERASE 67 U/L (12-78); ALBUMIN 4.4 G/DL (3.4-5.0); ALKALINE PHOSPHATASE 156 IU/L (46-116); ANION GAP 11 (8-16); ASPARTATE AMINO TRANSFERASE 31 U/L (10-37); BILIRUBIN,TOTAL 0.5 MG/DL (0.1-1.0); BLOOD UREA NITROGEN 20 MG/DL (7-18); BUN/CREATININE RATIO 13.3 (6.6-38.0); CALCIUM 10.1 MG/DL (8.5-10.1); CHLORIDE 83 MMOL/L (99-107); GLUCOSE 142 MG/DL (70-104); MAGNESIUM 1.2 MG/DL (1.5-2.4); SODIUM 131 MMOL/L (135-145); TOTAL CARBON DIOXIDE 36.9 MMOL/L (24-32); TOTAL PROTEIN 8.6 G/DL (6.4-8.2); eGFR 40 ML/MIN
--- NOTE | 2019-06-13 09:45 | NUR ---
PER DR SARAH REQUEST, PATIENT MOVED TO ROOM 3 FOR CENTRAL LINE PLACEMENT, REPORT TO ANTHONY MENARD
[2019-06-13] MEDS ORDERED: magnesium 2GM in 50ml NS 50 ML IV ONE (10:25)
[2019-06-13] MEDS ORDERED: POTASSIUM BICARB 20meq eff tab 20 MEQ TABLET.EFF PO ONE (10:25)
[2019-06-13 12:11] LABS: CLARITY,URINE SLIGHTLY CLOUDY (Clear); COLOR,URINE YELLOW (Yellow); GLUCOSE, URINE NEGATIVE (Neg); KETONES,URINE NEGATIVE (Neg); LEUKOCYTE ESTERASE ,URINE NEGATIVE (Neg); NITRITES, URINE NEGATIVE (Neg); OCCULT BLOOD,URINE NEGATIVE (Neg); PH,URINE 7.5 (4.8-8.0); PROTEIN,URINE TRACE mg/dl (Neg); URINE HCG NEGATIVE (NEG); UROBILINOGEN,URINE 0.2 E.U/dL (0.2-1.0)
[2019-06-13 12:13] LABS: UA COLLECTION TYPE STRAIGHT CATH
[2019-06-13] MEDS ORDERED: potassium Cl 20 mEq SR tablet PO PRN ×2 (12:15)
[2019-06-13] MEDS ORDERED: magnesium Cl slow-release 64mg tablet PO PRN (12:15)
[2019-06-13] MEDS ORDERED: potassium CL 10mEq/100ml bag 100 ML IV PRN (12:15)
[2019-06-13] MEDS ORDERED: magnesium hydroxide 30ml (MOM) UD suspension PO PRN (12:15)
[2019-06-13] MEDS ORDERED: magnesium 2GM in 50ml NS 50 ML IV PRN (12:15)
[2019-06-13] MEDS ORDERED: ondansetron/PF 4mg/2ml inj IV PRN (12:15)
[2019-06-13] MEDS ORDERED: mag hydrox/Alum hydrox/simeth 30ml oral suspension PO PRN (12:15)
[2019-06-13] MEDS ORDERED: acetaminophen 325mg tablet PO PRN (12:15)
[2019-06-13] MEDS ORDERED: proCHLORperazine 10 MG/2 ml inj IV PRN (12:20)
[2019-06-13 12:26] LABS: URINE AMPHETAMINE SCREEN NEGATIVE (Neg); URINE BARBITUATE SCREEN NEGATIVE (Neg); URINE BENZODIAZEPINES SCREEN NEGATIVE (Neg); URINE CANNABINOID SCREEN POSITIVE (Neg); URINE COCAINE SCREEN NEGATIVE (Neg); URINE METHADONE SCREEN NEGATIVE (Neg); URINE OPIATE SCREEN NEGATIVE (Neg); URINE PHENCYCLIDINE SCREEN NEGATIVE (Neg)
[2019-06-13] MEDS ORDERED: TRAM50TA2 PO (12:26)
[2019-06-13] MEDS: normal saline 1000ml 1,000 ML IV SCH ×2 (12:34→22:53)
[2019-06-13 12:48] LABS: MAGNESIUM 2.8 MG/DL (1.5-2.4)
[2019-06-13 12:49] LABS: POTASSIUM 3.5 MMOL/L (3.5-5.1)
[2019-06-13 12:59] LABS: BACTERIA,URINE FEW /HPF (Neg); RBC,URINE NONE SEEN /HPF (0-2); SQUAMOUS EPITHELIAL CELL,UR MANY /LPF (FEW); WBC,URINE 0-4 /HPF (0-4)
[2019-06-13] MEDS ORDERED: HYDROmorphone inj. 0.5 MG/0.5 ML DISP.SYRIN IV ONE ×2 (13:30→13:40)
--- NOTE | 2019-06-13 13:47 | NUR ---
CALL OUT TO MD, SURGICAL FLOOR WORRIED PT IS NOT APPROPRIATE FOR THAT UNIT
--- NOTE | 2019-06-13 14:08 | NUR ---
relieving RN for break, pt is sitting up on bed, HR 128
--- NOTE | 2019-06-13 14:18 | NUR ---
assisting RN with pt care, pt up to bedside commode without assist, Dr Corbett aware HR 120s to 140s and surgical floor was concerned about taking pt, gave verbal order to have pt go to PCU,
[2019-06-13 15:00] VITALS: BP 126/88
[2019-06-13] MEDS: levoFLOXACIN-Levaquin 500mg/D5 100 ML IV SCH (15:40)
--- NOTE | 2019-06-13 15:49 | NUR ---
PAGER ID: [phone] MESSAGE: [id number] Lita Dioni: FYI she is sinus tach 130's. SAILAJA Guidry Ext [phone]
--- NOTE | 2019-06-13 16:21 | NUR ---
PAGER ID: [phone] MESSAGE: [id number] Lita Wheatley was hoping she could get a prn pain med. Recently received the dilaudid so she is fine now. SAILAJA Guidry Ext [phone]
[2019-06-13] MEDS: pantoprazole 40 MG vial IV SCH (16:53)
--- NOTE | 2019-06-13 17:23 | NUR ---
PAGER ID: [phone] MESSAGE: [id number] Lita Dioni HR in the 140-150's. SAILAJA Guidry Ext [phone]
[2019-06-13 18:00] VITALS: BP 121/83
--- NOTE | 2019-06-13 18:00 | NUR ---
Patient in room PCU 3023. I have received report from SAILAJA Guidry and had the opportunity to ask questions and assume patient care.
--- NOTE | 2019-06-13 18:04 | NUR ---
Patient in room PCU 3023. I have received report from SAILAJA Guthrie and had the opportunity to ask questions and assume patient care.
--- NOTE | 2019-06-13 18:24 | NUR ---
Problems reprioritized. Patient report given, questions answered & plan of care reviewed with SAILAJA Guthrie.
[2019-06-13] MEDS: levetiracetam 250mg tablet PO SCH (19:38)
[2019-06-13] MEDS: heparin, porcine 5000 units/ml vial SQ SCH (19:40)
[2019-06-13] MEDS: HYDROmorphone inj. 0.5 MG/0.5 ML DISP.SYRIN IV PRN (21:18)
[2019-06-13 22:00] VITALS: BP 111/80
[2019-06-14 02:00] VITALS: BP 105/77
[2019-06-14] MEDS: HYDROmorphone inj. 0.5 MG/0.5 ML DISP.SYRIN IV PRN ×2 (04:23→10:20)
--- NOTE | 2019-06-14 04:49 | NUR ---
Patient has been able to sleep most of the night. Pain level has been 7-10 level even with dilaudid 0.5 mg. Able to walk to the bathroom with minimal help. Will continue to monitor.
[2019-06-14 05:18] LABS: BASOPHILS % (AUTO) 0.3 % (0-1); EOSINOPHILS % (AUTO) 0.1 % (0-6); HEMATOCRIT 39.4 % (35.0-45.0); HEMOGLOBIN 13.6 g/dl (12.0-16.0); LYMPHOCYTES # (AUTO) 2.8 X10'3 (1.1-4.8); LYMPHOCYTES % (AUTO) 23.1 % (21-51); MEAN CORPUSCULAR HEMOGLOBIN 30.9 PG (27.0-31.0); MEAN CORPUSCULAR HGB CONC 34.6 g/dL (33.0-36.5); MEAN CORPUSCULAR VOLUME 89.3 FL (78-98); MEAN PLATELET VOLUME 7.9 FL (7.4-10.4); MONOCYTES # (AUTO) 1.3 X10'3 (0-0.9); MONOCYTES % (AUTO) 10.8 % (2-12); NEUTROPHILS # (AUTO) 7.9 X10'3 (1.8-7.7); NEUTROPHILS % (AUTO) 65.7 % (42-75); PLATELET COUNT 341 X10'3 (140-440); RED BLOOD COUNT 4.41 X10'6 (4.20-5.60); RED CELL DISTRIBUTION WIDTH 13.7 % (11.5-14.5)
--- NOTE | 2019-06-14 06:09 | NUR ---
Problems reprioritized. Patient report given, questions answered & plan of care reviewed with Chao MENARD.
[2019-06-14 06:14] LABS: ANION GAP 5 (8-16); BLOOD UREA NITROGEN 9 MG/DL (7-18); BUN/CREATININE RATIO 9.6 (6.6-38.0); CALCIUM 8.9 MG/DL (8.5-10.1); CHLORIDE 100 MMOL/L (99-107); CREATININE 0.94 MG/DL (0.40-0.90); GLUCOSE 81 MG/DL (70-104); MAGNESIUM 2.1 MG/DL (1.5-2.4); POTASSIUM 3.4 MMOL/L (3.5-5.1); SODIUM 139 MMOL/L (135-145); TOTAL CARBON DIOXIDE 33.6 MMOL/L (24-32); eGFR 68 ML/MIN
--- NOTE | 2019-06-14 06:18 | NUR ---
Patient in room PCU 3023. I have received report from SAILAJA Guthrie and had the opportunity to ask questions and assume patient care.
[2019-06-14 07:00] VITALS: BP 91/64
[2019-06-14] MEDS: heparin, porcine 5000 units/ml vial SQ SCH (08:00)
[2019-06-14] MEDS: pantoprazole 40 MG vial IV SCH (08:02)
[2019-06-14] MEDS: levoFLOXACIN-Levaquin 500mg/D5 100 ML IV SCH (08:02)
[2019-06-14] MEDS: levetiracetam 250mg tablet PO SCH (08:03)
[2019-06-14] MEDS ORDERED: metoclopramide 10mg tablet PO ONE (09:25)
[2019-06-14] MEDS: normal saline 1000ml 1,000 ML IV SCH (09:43)
[2019-06-14 11:00] VITALS: BP 96/65
--- NOTE | 2019-06-14 11:31 | NUR ---
PAGER ID: [phone] MESSAGE: [id number] Lita Christiey: Ate some bits of her pineapple, but that is it. She was wondering if that is good enough for you to DC her. SAILAJA Guidry Ext [phone]
[2019-06-14] MEDS ORDERED: METO-292 PO (12:28)
[2019-06-14] MEDS ORDERED: PANT-47 PO (12:28)
--- NOTE | 2019-06-14 14:15 | NUR ---
Reviewed d/c instructions with pt., pt. verbalizes understanding. Received copies. EJ dc'd, catheter tip intact. Site clear. Dc'd via private vehicle with family and personal belongings. New prescriptions called to [facility] in [place]. Pt verbalizes understanding instructions for new medications. Reports she has taken then in the past.
--- NOTE | 2019-06-14 16:23 | NUR ---
[place] documentation: I have reviewed and agree with all interventions, assessments performed and documented by SAILAJA Casey.
--- NOTE | 2019-06-14 16:24 | NUR ---
[place] Medication Administration: For this medication-pass time frame, all medication were reviewed, dispensed, administered and documented per hospital policy by SAILAJA Casey.
== END 2019-06-14 14:20 | disposition home or self-care (01) ==
LOC: ER 08:06 → CANBEDREQ 14:31 → PCU 3S 15:11
PROVIDERS: ADMIT Family Medicine; ATTEND Family Medicine
DX: G43.A0 Cyclical vomiting, in migraine, not intractable (principal); R00.0 Tachycardia, unspecified; D72.829 Elevated white blood cell count, unspecified; E87.1 Hypo-osmolality and hyponatremia; E87.6 Hypokalemia; E83.42 Hypomagnesemia; I10 Essential (primary) hypertension; G40.909 Epilepsy, unspecified, not intractable, without status epilepticus; N17.9 Acute kidney failure, unspecified; K20.9 Esophagitis, unspecified; F12.90 Cannabis use, unspecified, uncomplicated; Z90.49 Acquired absence of other specified parts of digestive tract; Z85.41 Personal history of malignant neoplasm of cervix uteri
CPT/HCPCS: 36415; 74176; 80048; 80053; 80305; 81001; 81025; 82948; 83735; 84132; 85025; 87081; 93005; 96361; 96365; 96366; 96367; 96368; 96375; 96376; 99284; C9113; G0378; J1170; J1200; J1644; J1953; J1956; J2060; J2765; J3475; J7030; J8597

== ENCOUNTER 2019-07-08 16:50 | Emergency (ER) | payer MEDICAID ==
[~2019-07-08] VITALS: Ht 170.2 cm; Wt 72.7 kg
[~2019-07-08 16:50] MED LIST changes: +METO-292 PO; -METO10TA3 PO; +PANT-47 PO; -TRAZ-251 PO
[2019-07-08] MEDS ORDERED: levetiracetam inj 1,500 MG in normal saline 100ml IV soln 85 ML IV ONE (17:05)
[2019-07-08] MEDS ORDERED: LORazepam 2 mg/ml vial IV ONE (17:05)
[2019-07-08] MEDS ORDERED: ondansetron/PF 4mg/2ml inj IV ONE (17:10)
[2019-07-08] MEDS ORDERED: diphenhydrAMINE 50 mg/ml inj IV ONE (17:10)
[2019-07-08] MEDS ORDERED: metoclopramide 5 mg/ml inj IV ONE (17:10)
[2019-07-08] MEDS ORDERED: normal saline 1000ml 1,000 ML IV ONE ×2 (17:10→18:05)
[2019-07-08] MEDS ORDERED: levetiracetam-NS 1000mg/100ml 100 ML IV ONE (17:15)
[2019-07-08] MEDS ORDERED: Levetiracetam-NS 500mg/100ml 100 ML IV ONE (17:15)
--- NOTE | 2019-07-08 17:29 | NUR ---
PT REPORTS THAT SHE SMOKES MARIJUANNA 3-5 TIMES PER DAY EVERY DAY TO HELP HER EAT.
[2019-07-08 17:53] LABS: BASOPHILS % (AUTO) 0.4 % (0-1); EOSINOPHILS % (AUTO) 0.1 % (0-6); HEMATOCRIT 41.4 % (35.0-45.0); HEMOGLOBIN 14.1 g/dl (12.0-16.0); LYMPHOCYTES # (AUTO) 0.8 X10'3 (1.1-4.8); LYMPHOCYTES % (AUTO) 9.3 % (21-51); MEAN CORPUSCULAR HEMOGLOBIN 30.6 PG (27.0-31.0); MEAN CORPUSCULAR VOLUME 89.9 FL (78-98); MEAN PLATELET VOLUME 7.7 FL (7.4-10.4); MONOCYTES # (AUTO) 0.4 X10'3 (0-0.9); MONOCYTES % (AUTO) 4.6 % (2-12); NEUTROPHILS # (AUTO) 7.3 X10'3 (1.8-7.7); NEUTROPHILS % (AUTO) 85.6 % (42-75); PLATELET COUNT 324 X10'3 (140-440); RED CELL DISTRIBUTION WIDTH 13.6 % (11.5-14.5); WHITE BLOOD COUNT 8.6 X10'3 (4.5-11.0)
[2019-07-08] MEDS ORDERED: pantoprazole 40 MG vial IV ONE (18:05)
[2019-07-08] MEDS ORDERED: ketorolac trometh. 30mg/ml inj. IV ONE (18:10)
[2019-07-08 18:12] LABS: ALANINE AMINOTRANSFERASE 24 U/L (12-78); ALBUMIN 3.8 G/DL (3.4-5.0); ALBUMIN/GLOBULIN RATIO 1.1 (1.1-1.5); ALKALINE PHOSPHATASE 93 IU/L (46-116); AMYLASE 36 U/L (25-115); ANION GAP 12 (8-16); ASPARTATE AMINO TRANSFERASE 26 U/L (10-37); BILIRUBIN,TOTAL 0.5 MG/DL (0.1-1.0); BLOOD UREA NITROGEN 9 MG/DL (7-18); BUN/CREATININE RATIO 12.2 (6.6-38.0); CALCIUM 8.6 MG/DL (8.5-10.1); CHLORIDE 103 MMOL/L (99-107); CREATINE KINASE 35 U/L (26-192); CREATININE 0.74 MG/DL (0.40-0.90); GLUCOSE 117 MG/DL (70-104); LIPASE 57 U/L (73-393); POTASSIUM 3.5 MMOL/L (3.5-5.1); SODIUM 140 MMOL/L (135-145); TOTAL CARBON DIOXIDE 25.1 MMOL/L (24-32); TOTAL PROTEIN 7.3 G/DL (6.4-8.2); eGFR 89 ML/MIN
--- NOTE | 2019-07-08 18:25 | NUR ---
PT HAD SEIZURE LASTING 2 MIN.
[2019-07-08] MEDS ORDERED: LEVE100S21 CORPAK (19:30)
[2019-07-08 19:41] VITALS: BP 114/71
== END 2019-07-08 19:58 | disposition home or self-care (01) ==
LOC: ER 16:51
DX: G40.909 Epilepsy, unspecified, not intractable, without status epilepticus (principal); R10.31 Right lower quadrant pain; R10.32 Left lower quadrant pain; I10 Essential (primary) hypertension; F12.90 Cannabis use, unspecified, uncomplicated; R19.7 Diarrhea, unspecified; Z56.0 Unemployment, unspecified; Z90.49 Acquired absence of other specified parts of digestive tract; Z98.51 Tubal ligation status; Z98.890 Other specified postprocedural states; Z88.5 Allergy status to narcotic agent; Z88.6 Allergy status to analgesic agent; Z79.899 Other long term (current) drug therapy
CPT/HCPCS: 36415; 80053; 82150; 82550; 83605; 83690; 85025; 85610; 96361; 96374; 96375; 99284; C9113; J1200; J1885; J1953; J2060; J2405; J2765

== ENCOUNTER 2019-07-14 16:21 | Emergency (ER) | payer MEDICAID ==
[~2019-07-14] VITALS: Ht 170.2 cm; Wt 59.0 kg
[~2019-07-14 16:21] MED LIST changes: +LEVE100S21 CORPAK
[2019-07-14] MEDS ORDERED: CefTRIAXone 2gm/D5W 50ml 50 ML IV ONE (16:30)
[2019-07-14] MEDS ORDERED: levetiracetam inj 1,000 MG in normal saline 100ml IV soln 90 ML IV ONE (16:30)
[2019-07-14] MEDS ORDERED: LORazepam 2 mg/ml vial IV ONE (16:30)
[2019-07-14] MEDS ORDERED: magnesium 2GM in 50ml NS 50 ML IV ONE (16:30)
[2019-07-14] MEDS ORDERED: acetaminophen 120MG suppository, rectal RC ONE (16:30)
[2019-07-14] MEDS ORDERED: normal saline 1000ML IV soln IV ONE (16:30)
[2019-07-14] MEDS ORDERED: metoclopramide 5 mg/ml inj IV ONE (16:40)
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
[2019-07-14 17:19] LABS: BASOPHILS % (AUTO) 0.4 % (0-1); EOSINOPHILS % (AUTO) 0 % (0-6); HEMATOCRIT 40.4 % (35.0-45.0); HEMOGLOBIN 13.8 g/dl (12.0-16.0); LYMPHOCYTES # (AUTO) 1.5 X10'3 (1.1-4.8); LYMPHOCYTES % (AUTO) 12.4 % (21-51); MEAN CORPUSCULAR HEMOGLOBIN 30.2 PG (27.0-31.0); MEAN CORPUSCULAR HGB CONC 34.2 g/dL (33.0-36.5); MEAN CORPUSCULAR VOLUME 88.2 FL (78-98); MEAN PLATELET VOLUME 8.4 FL (7.4-10.4); MONOCYTES # (AUTO) 0.6 X10'3 (0-0.9); MONOCYTES % (AUTO) 5.5 % (2-12); NEUTROPHILS # (AUTO) 9.5 X10'3 (1.8-7.7); NEUTROPHILS % (AUTO) 81.7 % (42-75); PLATELET COUNT 342 X10'3 (140-440); RED BLOOD COUNT 4.58 X10'6 (4.20-5.60); RED CELL DISTRIBUTION WIDTH 13.3 % (11.5-14.5); WHITE BLOOD COUNT 11.7 X10'3 (4.5-11.0)
[2019-07-14 17:32] LABS: ALANINE AMINOTRANSFERASE 18 U/L (12-78); ALBUMIN 3.9 G/DL (3.4-5.0); ALBUMIN/GLOBULIN RATIO 1.2 (1.1-1.5); ALKALINE PHOSPHATASE 91 IU/L (46-116); ANION GAP 11 (8-16); ASPARTATE AMINO TRANSFERASE 16 U/L (10-37); BILIRUBIN,TOTAL 0.5 MG/DL (0.1-1.0); BLOOD UREA NITROGEN 3 MG/DL (7-18); BUN/CREATININE RATIO 4.3 (6.6-38.0); CALCIUM 9.1 MG/DL (8.5-10.1); CHLORIDE 103 MMOL/L (99-107); CREATINE KINASE 37 U/L (26-192); GLUCOSE 113 MG/DL (70-104); MAGNESIUM 1.3 MG/DL (1.5-2.4); SODIUM 140 MMOL/L (135-145); TOTAL CARBON DIOXIDE 26.2 MMOL/L (24-32); TOTAL PROTEIN 7.2 G/DL (6.4-8.2); eGFR > 90 ML/MIN
[2019-07-14 17:39] LABS: POTASSIUM 2.7 MMOL/L (3.5-5.1)
[2019-07-14] MEDS ORDERED: potassium Cl 20 mEq SR tablet PO STA (17:41)
[2019-07-14] MEDS ORDERED: potassium Cl 10 mEq/100mL bag IV ONE (17:45)
[2019-07-14 17:57] LABS: CLARITY,URINE CLOUDY (Clear); COLOR,URINE YELLOW (Yellow); GLUCOSE, URINE NEGATIVE (Neg); KETONES,URINE 15 mg/dl (Neg); LEUKOCYTE ESTERASE ,URINE NEGATIVE (Neg); NITRITES, URINE NEGATIVE (Neg); OCCULT BLOOD,URINE NEGATIVE (Neg); PH,URINE 6.5 (4.8-8.0); PROTEIN,URINE 100 mg/dl (Neg); UROBILINOGEN,URINE 0.2 E.U/dL (0.2-1.0)
[2019-07-14 18:04] LABS: UA COLLECTION TYPE STRAIGHT CATH
[2019-07-14 18:06] LABS: BACTERIA,URINE NONE SEEN /HPF (Neg); MUCUS STRANDS MANY /LPF (Neg); RBC,URINE NONE SEEN /HPF (0-2); SQUAMOUS EPITHELIAL CELL,UR MANY /LPF (FEW); WBC,URINE 0-4 /HPF (0-4)
[2019-07-14 18:07] LABS: HYALINE CASTS 0-3 /LPF (NEGATIVE)
[2019-07-14] MEDS ORDERED: fentaNYL/PF 50MCG/1 ML 2ML syringe IV ONE (18:35)
--- NOTE | 2019-07-14 18:52 | NUR ---
AT 1845 THE DAUGHTER OF THE PT. CAME IN AND WANTED A LIST OF EVERY PERSON WHO WAS ON SHIFT.... PRAVIN GAVE HER HER NAME AND THE DAUGHTER LEFT. I WAS MADE AWARE AFTER DAUGHTER LEFT.
[2019-07-14 20:29] VITALS: BP 119/85
== END 2019-07-14 20:32 | disposition home or self-care (01) ==
LOC: ER 16:21
DX: E86.0 Dehydration (principal); E87.5 Hyperkalemia; G40.909 Epilepsy, unspecified, not intractable, without status epilepticus; I10 Essential (primary) hypertension; F12.90 Cannabis use, unspecified, uncomplicated; Z56.0 Unemployment, unspecified; Z90.49 Acquired absence of other specified parts of digestive tract; Z98.51 Tubal ligation status; Z88.5 Allergy status to narcotic agent; Z88.8 Allergy status to other drugs, medicaments and biological substances; Z79.899 Other long term (current) drug therapy
CPT/HCPCS: 36415; 71045; 80053; 81001; 82550; 83605; 83735; 84145; 85025; 87040; 93005; 96365; 96366; 96368; 96375; 99284; J0696; J1953; J2060; J2765; J3010; J3475; J3480

== ENCOUNTER 2019-08-29 18:10 | Emergency (ER) | payer MEDICAID ==
[~2019-08-29] VITALS: Ht 170.2 cm; Wt 120.0 kg
--- NOTE | 2019-08-29 18:15 | NUR ---
Sandra austinbrittney in ED - 08/29/19 at 1816 by HEENA WITH PERMISSION FROM PATIENT, I UPDATED PATIENT'S DAUGHTER MERARI [phone]
--- NOTE | 2019-08-29 18:16 | NUR ---
PREVIOUS NOTE WRITTEN ON WRONG PATIENT
[2019-08-29] MEDS ORDERED: LORazepam 2 mg/ml vial IV ONE ×2 (18:40→20:30)
--- NOTE | 2019-08-29 18:40 | NUR ---
PATIENT APPEARS TO BE HAVING A TONIC CLONIC SEIZURE FROM A DISTANCE. SEIZURE PADS IN PLACE, AT BEDSIDE. WHEN I LIFTED HER RIGHT ARM, THE RIGHT ARM DROPPED TO THE BED. WHEN I PUT MY HAND ON HER LEFT ARM, SHE AGGIE HER ARM TO HER CHEST AGAINST RESISTANCE, HER RIGHT ARM WAS FULLY EXTENDED UNTIL I PLACED MY HAND ON HER WRIST TO CHECK HER PULSE. AFTER HER "SEIZURE", PATIENT SAT UPRIGHT AND TRIED TO VOMIT. NO POST ICTAL PERIOD NOTED. SPO2 DID NOT CHANGE DURING "SEIZURE". PATIENT HAS NOT HAD EEG SINCE 2004.
[2019-08-29] MEDS ORDERED: levetiracetam inj 500 MG in normal saline 1000ml 100 ML IV ONE (18:45)
[2019-08-29] MEDS ORDERED: normal saline 1000ml 1,000 ML IV ONE ×2 (18:50→19:50)
[2019-08-29] MEDS ORDERED: Levetiracetam-NS 500mg/100ml 100 ML IV ONE (18:54)
[2019-08-29 19:08] LABS: BASOPHILS % (AUTO) 0.4 % (0-1); EOSINOPHILS % (AUTO) 0 % (0-6); HEMATOCRIT 39.5 % (35.0-45.0); HEMOGLOBIN 13.4 g/dl (12.0-16.0); LYMPHOCYTES # (AUTO) 1.2 X10'3 (1.1-4.8); MEAN CORPUSCULAR HEMOGLOBIN 30.2 PG (27.0-31.0); MEAN CORPUSCULAR HGB CONC 33.9 g/dL (33.0-36.5); MEAN CORPUSCULAR VOLUME 89.1 FL (78-98); MEAN PLATELET VOLUME 7.5 FL (7.4-10.4); MONOCYTES # (AUTO) 0.3 X10'3 (0-0.9); NEUTROPHILS # (AUTO) 7.6 X10'3 (1.8-7.7); NEUTROPHILS % (AUTO) 83.6 % (42-75); PLATELET COUNT 362 X10'3 (140-440); RED BLOOD COUNT 4.44 X10'6 (4.20-5.60); WHITE BLOOD COUNT 9.1 X10'3 (4.5-11.0)
[2019-08-29 19:17] LABS: PARTIAL THROMBOPLASTIN TIME 23 SECONDS (22-32)
[2019-08-29 19:19] LABS: ALANINE AMINOTRANSFERASE 29 U/L (12-78); ALBUMIN/GLOBULIN RATIO 1.3 (1.1-1.5); ALKALINE PHOSPHATASE 75 IU/L (46-116); ANION GAP 12 (8-16); ASPARTATE AMINO TRANSFERASE 27 U/L (10-37); BILIRUBIN,TOTAL 0.3 MG/DL (0.1-1.0); BLOOD UREA NITROGEN 14 MG/DL (7-18); BUN/CREATININE RATIO 20.3 (6.6-38.0); CALCIUM 9.1 MG/DL (8.5-10.1); CHLORIDE 106 MMOL/L (99-107); CREATININE 0.69 MG/DL (0.40-0.90); GLUCOSE 115 MG/DL (70-104); MAGNESIUM 1.4 MG/DL (1.5-2.4); POTASSIUM 3.5 MMOL/L (3.5-5.1); SODIUM 145 MMOL/L (135-145); TOTAL CARBON DIOXIDE 27.5 MMOL/L (24-32); eGFR > 90 ML/MIN
[2019-08-29] MEDS ORDERED: magnesium 4gm in 100ml NS 100 ML IV ONE (19:30)
[2019-08-29] MEDS ORDERED: ondansetron/PF 4mg/2ml inj IV ONE (19:50)
[2019-08-29] MEDS ORDERED: ketorolac trometh. 30mg/ml inj. IV ONE (19:50)
[2019-08-29] MEDS ORDERED: metoclopramide 5 mg/ml inj IV ONE (19:50)
--- NOTE | 2019-08-29 20:01 | NUR ---
IN PATIENT'S ROOM, SHE ASKED FOR SOMETHING FOR HER SEIZURE. I TOLD HER THAT SHE RECEIVED ATIVAN AND KEPPRA. PATIENT STATED "I WANT TO FEEL IT. I DIDN'T FEEL IT" I REPLIED THAT MEDICATIONS FOR SEIZURE MANAGEMENT ARE NOT MEANT TO MAKE A PERSON FEEL ANYTHING THE PATIENT ASKED FOR MORE ATIVAN
[2019-08-29] MEDS ORDERED: capsaicin 0.025% 60gm cream TP SCH (20:30)
[2019-08-29] MEDS ORDERED: haloperidol lactate 5mg/ml inj IM ONE (20:30)
[2019-08-29 21:54] VITALS: BP 116/73
== END 2019-08-29 21:56 | disposition home or self-care (01) ==
LOC: ER 18:11
DX: G40.909 Epilepsy, unspecified, not intractable, without status epilepticus (principal); R11.15 Cyclical vomiting syndrome unrelated to migraine; R19.7 Diarrhea, unspecified; I10 Essential (primary) hypertension; F41.9 Anxiety disorder, unspecified; F10.99 Alcohol use, unspecified with unspecified alcohol-induced disorder; F12.90 Cannabis use, unspecified, uncomplicated; R79.1 Abnormal coagulation profile; Z56.0 Unemployment, unspecified; Z90.49 Acquired absence of other specified parts of digestive tract; Z98.51 Tubal ligation status; Z88.5 Allergy status to narcotic agent; Z88.8 Allergy status to other drugs, medicaments and biological substances; Z79.899 Other long term (current) drug therapy; Y90.9 Presence of alcohol in blood, level not specified
CPT/HCPCS: 36415; 80053; 83735; 85025; 85610; 85730; 96361; 96365; 96366; 96372; 96375; 99284; J1630; J1885; J1953; J2060; J2405; J2765; J3475; J7030

== ENCOUNTER 2019-09-08 08:17 | Emergency (ER) | payer MEDICAID ==
[~2019-09-08] VITALS: Ht 170.2 cm; Wt 54.5 kg
[2019-09-08] MEDS ORDERED: LORazepam 2 mg/ml vial ONE (08:29)
[2019-09-08] MEDS ORDERED: LORazepam 2 mg/ml vial IV ONE (08:35)
[2019-09-08] MEDS ORDERED: normal saline 1000ML IV soln IVB ONE ×2 (08:40→11:45)
[2019-09-08] MEDS ORDERED: haloperidol lactate 5mg/ml inj IM ONE ×2 (08:40→09:45)
[2019-09-08] MEDS ORDERED: ondansetron/PF 4mg/2ml inj IV ONE (08:40)
[2019-09-08 09:07] LABS: BASOPHILS % (AUTO) 0.2 % (0-1); EOSINOPHILS % (AUTO) 0 % (0-6); HEMATOCRIT 45.5 % (35.0-45.0); HEMOGLOBIN 15.4 g/dl (12.0-16.0); LYMPHOCYTES # (AUTO) 0.3 X10'3 (1.1-4.8); LYMPHOCYTES % (AUTO) 1.4 % (21-51); MEAN CORPUSCULAR HEMOGLOBIN 30.1 PG (27.0-31.0); MEAN CORPUSCULAR HGB CONC 33.8 g/dL (33.0-36.5); MEAN CORPUSCULAR VOLUME 89.2 FL (78-98); MEAN PLATELET VOLUME 8.2 FL (7.4-10.4); MONOCYTES # (AUTO) 0.5 X10'3 (0-0.9); MONOCYTES % (AUTO) 2.3 % (2-12); NEUTROPHILS # (AUTO) 19.4 X10'3 (1.8-7.7); NEUTROPHILS % (AUTO) 96.1 % (42-75); PLATELET COUNT 407 X10'3 (140-440); RED BLOOD COUNT 5.11 X10'6 (4.20-5.60); RED CELL DISTRIBUTION WIDTH 13.1 % (11.5-14.5); WHITE BLOOD COUNT 20.2 X10'3 (4.5-11.0)
[2019-09-08 09:25] LABS: ALANINE AMINOTRANSFERASE 37 U/L (12-78); ALBUMIN/GLOBULIN RATIO 1.1 (1.1-1.5); ALKALINE PHOSPHATASE 84 IU/L (46-116); ANION GAP 15 (8-16); ASPARTATE AMINO TRANSFERASE 40 U/L (10-37); BILIRUBIN,TOTAL 0.6 MG/DL (0.1-1.0); BLOOD UREA NITROGEN 21 MG/DL (7-18); BUN/CREATININE RATIO 23.1 (6.6-38.0); CALCIUM 9.3 MG/DL (8.5-10.1); CHLORIDE 100 MMOL/L (99-107); CREATININE 0.91 MG/DL (0.40-0.90); GLUCOSE 191 MG/DL (70-104); LIPASE 52 U/L (73-393); POTASSIUM 4.3 MMOL/L (3.5-5.1); SODIUM 137 MMOL/L (135-145); TOTAL CARBON DIOXIDE 22.5 MMOL/L (24-32); TOTAL PROTEIN 7.6 G/DL (6.4-8.2); eGFR 70 ML/MIN
[2019-09-08] MEDS ORDERED: ketorolac trometh. 30mg/ml inj. IV ONE (09:45)
[2019-09-08 10:00] LABS: HCG SERUM QL NEGATIVE
[2019-09-08 10:10] LABS: URINE AMPHETAMINE SCREEN NEGATIVE (Neg); URINE BARBITUATE SCREEN NEGATIVE (Neg); URINE BENZODIAZEPINES SCREEN NEGATIVE (Neg); URINE CANNABINOID SCREEN POSITIVE (Neg); URINE COCAINE SCREEN NEGATIVE (Neg); URINE METHADONE SCREEN NEGATIVE (Neg); URINE OPIATE SCREEN NEGATIVE (Neg); URINE PHENCYCLIDINE SCREEN NEGATIVE (Neg)
--- NOTE | 2019-09-08 10:57 | NUR ---
let md know pt hr still in the 123-138 range
--- NOTE | 2019-09-08 11:40 | NUR ---
PT RESTING EYES CLOSED, WILL RESPOND TO QUESTIONS WHEN ASKED, PRESENT AT BEDSIDE
[2019-09-08] MEDS ORDERED: ONDA8TAB6 PO (14:56)
[2019-09-08] MEDS ORDERED: PROM25SU46 RC (14:56)
[2019-09-08 15:00] VITALS: BP 115/64
== END 2019-09-08 15:08 | disposition home or self-care (01) ==
LOC: ER 08:17
DX: E86.0 Dehydration (principal); R11.2 Nausea with vomiting, unspecified; R19.7 Diarrhea, unspecified; R10.84 Generalized abdominal pain; I10 Essential (primary) hypertension; F41.9 Anxiety disorder, unspecified; F12.90 Cannabis use, unspecified, uncomplicated; F10.99 Alcohol use, unspecified with unspecified alcohol-induced disorder; Z86.69 Personal history of other diseases of the nervous system and sense organs; Z90.49 Acquired absence of other specified parts of digestive tract; Z98.51 Tubal ligation status; Z56.0 Unemployment, unspecified; Z88.5 Allergy status to narcotic agent; Z88.8 Allergy status to other drugs, medicaments and biological substances; Z79.899 Other long term (current) drug therapy; Y90.9 Presence of alcohol in blood, level not specified
CPT/HCPCS: 36415; 71045; 80053; 80305; 83690; 84703; 85025; 93005; 96361; 96372; 96374; 96375; 99284; J1630; J1885; J2060; J2405; J7030

== ENCOUNTER 2019-11-29 07:51 | Emergency (ER) | payer MEDICAID ==
[~2019-11-29] VITALS: Ht 170.2 cm; Wt 57.7 kg
[~2019-11-29 07:51] MED LIST changes: +ONDA8TAB6 PO; +PROM25SU46 RC
[2019-11-29] MEDS ORDERED: levetiracetam inj 500 MG in normal saline 100ml IV soln 95 ML IV STA (08:23)
[2019-11-29] MEDS ORDERED: diphenhydrAMINE 50 mg/ml inj IV ONE (08:25)
[2019-11-29] MEDS ORDERED: metoclopramide 5 mg/ml inj IV ONE (08:25)
[2019-11-29] MEDS ORDERED: normal saline 1000ML IV soln IVB ONE (08:25)
[2019-11-29] MEDS ORDERED: ketorolac tromethamine 15mg/ml inj. IV ONE (08:30)
[2019-11-29] MEDS ORDERED: Levetiracetam-NS 500mg/100ml 100 ML IV ONE (08:35)
[2019-11-29] MEDS ORDERED: haloperidol lactate 5mg/ml inj IM ONE (09:35)
[2019-11-29] MEDS ORDERED: LORazepam 2 mg/ml vial IV ONE (09:40)
--- NOTE | 2019-11-29 10:00 | NUR ---
IN TO MEDICATE PT FOR "A PANIC ATTACK PER " PT WAS SLEEPING AND NEEDED TO BE WOKEN UP TO GIVEN IM HALDOL. AT THIS TIME ATIVAN IS HELD D/T PT RESTING COMFORTABLY, NO SEZ ACTIVITY. BASSEM NOTIFIED AND AGREES TO HOLD ATIVAN
[2019-11-29] MEDS ORDERED: HALO1TAB PO (10:39)
[2019-11-29] MEDS ORDERED: DIPH25CA83 PO (10:39)
[2019-11-29 10:41] VITALS: BP 100/60
[2019-11-30] MEDS ORDERED: DIPH25CA83 PO (17:52)
== END 2019-11-29 10:49 | disposition home or self-care (01) ==
LOC: ER 07:52
DX: G40.909 Epilepsy, unspecified, not intractable, without status epilepticus (principal); R11.15 Cyclical vomiting syndrome unrelated to migraine; R10.84 Generalized abdominal pain; I10 Essential (primary) hypertension; F12.90 Cannabis use, unspecified, uncomplicated; Z56.0 Unemployment, unspecified; Z90.49 Acquired absence of other specified parts of digestive tract; Z98.51 Tubal ligation status; Z88.5 Allergy status to narcotic agent; Z88.8 Allergy status to other drugs, medicaments and biological substances; Z79.899 Other long term (current) drug therapy
CPT/HCPCS: 96361; 96372; 96374; 96375; 99284; J1200; J1630; J1885; J1953; J2765; J7030

== ENCOUNTER 2019-11-30 14:34 | Emergency (ER) | payer MEDICAID ==
[~2019-11-30] VITALS: Ht 170.2 cm; Wt 57.7 kg
[~2019-11-30 14:34] MED LIST changes: +DIPH25CA83 PO; +HALO1TAB PO
[2019-11-30] MEDS ORDERED: benztropine 1mg tablet PO STA (15:04)
--- NOTE | 2019-11-30 15:48 | NUR ---
no seizure activity noted
[2019-11-30] MEDS ORDERED: cyclobenzaprine 10mg tablet PO ONE (16:35)
[2019-11-30] MEDS ORDERED: diphenhydrAMINE 25mg capsule PO ONE (17:35)
[2019-11-30] MEDS ORDERED: DIPH25CA83 PO (17:52)
[2019-11-30 18:13] VITALS: BP 102/69
--- NOTE | 2019-11-30 19:14 | NUR ---
PT AND MALE PARTNER ELOPED WITHOUT NOTIFYING NURSING STAFF. AT LAST EVAL, PT'S DID CONFIRM THAT PT WAS "FEELING A LOT BETTER THAN BEFORE" AND WAS AOX4. NOTIFIED.
== END 2019-11-30 19:17 | disposition left against medical advice (07) ==
LOC: ER 14:35
DX: G24.01 Drug induced subacute dyskinesia (principal); I10 Essential (primary) hypertension; F41.9 Anxiety disorder, unspecified; F12.90 Cannabis use, unspecified, uncomplicated; Z86.69 Personal history of other diseases of the nervous system and sense organs; Z90.49 Acquired absence of other specified parts of digestive tract; Z98.51 Tubal ligation status; Z56.0 Unemployment, unspecified; Z72.89 Other problems related to lifestyle; Z88.5 Allergy status to narcotic agent; Z79.899 Other long term (current) drug therapy
CPT/HCPCS: 99284; Q0163

== ENCOUNTER 2020-02-02 19:16 | Emergency (ER) | payer MEDICAID ==
[~2020-02-02] VITALS: Ht 170.2 cm; Wt 56.8 kg
[2020-02-02] MEDS ORDERED: LORazepam 2 mg/ml vial IV ONE (19:30)
[2020-02-02] MEDS ORDERED: ondansetron/PF 4mg/2ml inj IV ONE (19:30)
[2020-02-02] MEDS ORDERED: levetiracetam inj 1,000 MG in normal saline 100ml IV soln 90 ML IV SCH (19:30)
[2020-02-02] MEDS ORDERED: normal saline 1000ml 1,000 ML IV ONE (19:50)
[2020-02-02] MEDS ORDERED: levetiracetam inj 1,000 MG in normal saline 100ml IV soln 90 ML IV ONE (20:00)
[2020-02-02 20:04] LABS: BASOPHILS % (AUTO) 0.1 % (0-1); EOSINOPHILS % (AUTO) 0.1 % (0-6); HEMATOCRIT 39.1 % (35.0-45.0); HEMOGLOBIN 13.3 g/dl (12.0-16.0); LYMPHOCYTES # (AUTO) 0.7 X10'3 (1.1-4.8); LYMPHOCYTES % (AUTO) 4.5 % (21-51); MEAN CORPUSCULAR HEMOGLOBIN 29.3 PG (27.0-31.0); MEAN CORPUSCULAR HGB CONC 33.9 g/dL (33.0-36.5); MEAN CORPUSCULAR VOLUME 86.4 FL (78-98); MEAN PLATELET VOLUME 7.8 FL (7.4-10.4); MONOCYTES # (AUTO) 0.3 X10'3 (0-0.9); MONOCYTES % (AUTO) 2.2 % (2-12); NEUTROPHILS # (AUTO) 14.1 X10'3 (1.8-7.7); NEUTROPHILS % (AUTO) 93.1 % (42-75); PLATELET COUNT 397 X10'3 (140-440); RED BLOOD COUNT 4.53 X10'6 (4.20-5.60); RED CELL DISTRIBUTION WIDTH 13.7 % (11.5-14.5); WHITE BLOOD COUNT 15.1 X10'3 (4.5-11.0)
[2020-02-02] MEDS ORDERED: ketorolac trometh. 30mg/ml inj. IV ONE (20:05)
[2020-02-02 20:17] LABS: ALANINE AMINOTRANSFERASE 23 U/L (12-78); ALBUMIN 3.8 G/DL (3.4-5.0); ALBUMIN/GLOBULIN RATIO 1.2 (1.1-1.5); ALKALINE PHOSPHATASE 98 IU/L (46-116); ANION GAP 11 (8-16); ASPARTATE AMINO TRANSFERASE 30 U/L (10-37); BILIRUBIN,TOTAL 0.4 MG/DL (0.1-1.0); BLOOD UREA NITROGEN 13 MG/DL (7-18); BUN/CREATININE RATIO 16.7 (6.6-38.0); CALCIUM 9.5 MG/DL (8.5-10.1); CHLORIDE 103 MMOL/L (99-107); CREATININE 0.78 MG/DL (0.40-0.90); ETHANOL < 0.010 GM/DL (0.0-0.010); GLUCOSE 132 MG/DL (70-104); POTASSIUM 3.3 MMOL/L (3.5-5.1); SODIUM 140 MMOL/L (135-145); TOTAL CARBON DIOXIDE 26.3 MMOL/L (24-32); TOTAL PROTEIN 7.1 G/DL (6.4-8.2); eGFR 84 ML/MIN
[2020-02-02] MEDS ORDERED: potassium Cl 20 mEq SR tablet PO ONE (20:20)
[2020-02-02 21:27] VITALS: BP 137/84
[2020-02-02 21:31] LABS: CLARITY,URINE CLOUDY (Clear); COLOR,URINE YELLOW (Yellow); GLUCOSE, URINE NEGATIVE (Neg); KETONES,URINE >=80 mg/dl (Neg); LEUKOCYTE ESTERASE ,URINE NEGATIVE (Neg); NITRITES, URINE NEGATIVE (Neg); OCCULT BLOOD,URINE NEGATIVE (Neg); PH,URINE >=9.0 (4.8-8.0); PROTEIN,URINE 100 mg/dl (Neg); URINE HCG NEGATIVE (NEG); UROBILINOGEN,URINE 0.2 E.U/dL (0.2-1.0)
[2020-02-02 21:35] LABS: UA COLLECTION TYPE CLN CATCH MIDSTREAM
[2020-02-02 21:38] LABS: BACTERIA,URINE FEW /HPF (Neg); RBC,URINE 0-2 /HPF (0-2); SQUAMOUS EPITHELIAL CELL,UR MANY /LPF (FEW); WBC,URINE 0-4 /HPF (0-4)
[2020-02-02 21:42] LABS: URINE AMPHETAMINE SCREEN NEGATIVE (Neg); URINE BARBITUATE SCREEN NEGATIVE (Neg); URINE BENZODIAZEPINES SCREEN NEGATIVE (Neg); URINE CANNABINOID SCREEN POSITIVE (Neg); URINE COCAINE SCREEN NEGATIVE (Neg); URINE METHADONE SCREEN NEGATIVE (Neg); URINE OPIATE SCREEN NEGATIVE (Neg); URINE PHENCYCLIDINE SCREEN NEGATIVE (Neg)
[2020-02-03] MEDS ORDERED: levetiracetam inj 1,000 MG in normal saline 100ml IV soln 90 ML IV SCH (08:00)
== END 2020-02-02 21:28 | disposition home or self-care (01) ==
LOC: ER 19:17
DX: G40.909 Epilepsy, unspecified, not intractable, without status epilepticus (principal); M19.90 Unspecified osteoarthritis, unspecified site; I10 Essential (primary) hypertension; F41.9 Anxiety disorder, unspecified; F12.90 Cannabis use, unspecified, uncomplicated; Z98.51 Tubal ligation status; Z90.49 Acquired absence of other specified parts of digestive tract; Z72.89 Other problems related to lifestyle; Z56.0 Unemployment, unspecified; Z88.5 Allergy status to narcotic agent; Z88.8 Allergy status to other drugs, medicaments and biological substances; Z79.899 Other long term (current) drug therapy
CPT/HCPCS: 36415; 71045; 80053; 80305; 80320; 81001; 81025; 85025; 96374; 96375; 99284; J1885; J1953; J2060; J2405; J7030

== ENCOUNTER 2020-05-15 07:10 | Emergency (ER) | payer MEDICAID ==
[~2020-05-15] VITALS: Ht 177.8 cm; Wt 56.8 kg
--- NOTE | 2020-05-15 07:21 | NUR ---
SEIZURE LASTING 45 SECONDS. EYES ROLLING BACK, WHOLE BODY SHAKING.
[2020-05-15] MEDS ORDERED: ondansetron/PF 4mg/2ml inj IV ONE (07:30)
[2020-05-15] MEDS ORDERED: levetiracetam inj 1,000 MG in normal saline 100ml IV soln 90 ML IV SCH (07:30)
[2020-05-15] MEDS ORDERED: LORazepam 2 mg/ml vial IV ONE (07:30)
[2020-05-15] MEDS ORDERED: levetiracetam inj 1,000 MG in normal saline 100ml IV soln 90 ML IV ONE (07:31)
[2020-05-15 07:53] LABS: CLARITY,URINE CLEAR (Clear); COLOR,URINE YELLOW (Yellow); GLUCOSE, URINE NEGATIVE (Neg); KETONES,URINE >=80 mg/dl (Neg); LEUKOCYTE ESTERASE ,URINE NEGATIVE (Neg); NITRITES, URINE NEGATIVE (Neg); OCCULT BLOOD,URINE TRACE-LYSED (Neg); PROTEIN,URINE 100 mg/dl (Neg); UROBILINOGEN,URINE 0.2 E.U/dL (0.2-1.0)
[2020-05-15 07:58] LABS: UA COLLECTION TYPE STRAIGHT CATH
[2020-05-15 08:10] LABS: BASOPHILS % (AUTO) 0.1 % (0-1); EOSINOPHILS % (AUTO) 0 % (0-6); HEMATOCRIT 39.8 % (35.0-45.0); HEMOGLOBIN 13.4 g/dl (12.0-16.0); LYMPHOCYTES # (AUTO) 1.1 X10'3 (1.1-4.8); LYMPHOCYTES % (AUTO) 6.2 % (21-51); MEAN CORPUSCULAR HEMOGLOBIN 30.2 PG (27.0-31.0); MEAN CORPUSCULAR HGB CONC 33.6 g/dL (33.0-36.5); MEAN PLATELET VOLUME 7.8 FL (7.4-10.4); MONOCYTES # (AUTO) 0.7 X10'3 (0-0.9); MONOCYTES % (AUTO) 3.8 % (2-12); NEUTROPHILS # (AUTO) 16.4 X10'3 (1.8-7.7); NEUTROPHILS % (AUTO) 89.9 % (42-75); PLATELET COUNT 392 X10'3 (140-440); RED BLOOD COUNT 4.42 X10'6 (4.20-5.60); RED CELL DISTRIBUTION WIDTH 13.7 % (11.5-14.5); WHITE BLOOD COUNT 18.3 X10'3 (4.5-11.0)
[2020-05-15 08:17] LABS: MUCUS STRANDS MODERATE /LPF (Neg); SQUAMOUS EPITHELIAL CELL,UR MODERATE /LPF (FEW); URINE AMPHETAMINE SCREEN NEGATIVE (Neg); URINE BARBITUATE SCREEN NEGATIVE (Neg); URINE BENZODIAZEPINES SCREEN NEGATIVE (Neg); URINE CANNABINOID SCREEN POSITIVE (Neg); URINE COCAINE SCREEN NEGATIVE (Neg); URINE METHADONE SCREEN NEGATIVE (Neg); URINE OPIATE SCREEN NEGATIVE (Neg); URINE PHENCYCLIDINE SCREEN NEGATIVE (Neg)
[2020-05-15 08:20] LABS: BACTERIA,URINE FEW /HPF (Neg); WBC,URINE 0-4 /HPF (0-4)
[2020-05-15 08:21] LABS: ALANINE AMINOTRANSFERASE 25 U/L (12-78); ALBUMIN 4.5 G/DL (3.4-5.0); ALBUMIN/GLOBULIN RATIO 1.3 (1.1-1.5); ALKALINE PHOSPHATASE 82 IU/L (46-116); ANION GAP 11 (8-16); ASPARTATE AMINO TRANSFERASE 20 U/L (10-37); BILIRUBIN,TOTAL 0.5 MG/DL (0.1-1.0); BLOOD UREA NITROGEN 20 MG/DL (7-18); BUN/CREATININE RATIO 25.3 (6.6-38.0); CALCIUM 9.6 MG/DL (8.5-10.1); CHLORIDE 99 MMOL/L (99-107); CREATININE 0.79 MG/DL (0.40-0.90); GLUCOSE 127 MG/DL (70-104); LIPASE 73 U/L (73-393); POTASSIUM 3.5 MMOL/L (3.5-5.1); SODIUM 137 MMOL/L (135-145); TOTAL CARBON DIOXIDE 27.4 MMOL/L (24-32); eGFR 82 ML/MIN
[2020-05-15 09:57] VITALS: BP 121/77
== END 2020-05-15 09:58 | disposition home or self-care (01) ==
LOC: ER 07:11
DX: R11.15 Cyclical vomiting syndrome unrelated to migraine (principal); R11.2 Nausea with vomiting, unspecified; R10.84 Generalized abdominal pain; F12.10 Cannabis abuse, uncomplicated; I10 Essential (primary) hypertension; F41.9 Anxiety disorder, unspecified; Z86.69 Personal history of other diseases of the nervous system and sense organs; Z87.01 Personal history of pneumonia (recurrent); Z85.41 Personal history of malignant neoplasm of cervix uteri; Z90.89 Acquired absence of other organs; Z90.49 Acquired absence of other specified parts of digestive tract; Z98.51 Tubal ligation status; Z72.89 Other problems related to lifestyle; Z56.0 Unemployment, unspecified; Z88.5 Allergy status to narcotic agent; Z88.8 Allergy status to other drugs, medicaments and biological substances; Z79.899 Other long term (current) drug therapy
CPT/HCPCS: 36415; 80053; 80305; 81001; 83690; 85025; 96365; 96375; 99284; J1953; J2060; J2405

== ENCOUNTER 2020-11-14 07:15 | Emergency (ER) | payer MEDICAID ==
[~2020-11-14] VITALS: Ht 170.2 cm; Wt 54.0 kg
[~2020-11-14 07:15] MED LIST changes: -PROM25SU46 RC; +PROM25SU9 RC
[2020-11-14] MEDS ORDERED: LORazepam 2 mg/ml vial IV ONE (07:30)
[2020-11-14] MEDS ORDERED: diphenhydrAMINE 50 mg/ml inj IV ONE (07:55)
[2020-11-14] MEDS ORDERED: metoclopramide 5 mg/ml inj IV ONE (07:55)
[2020-11-14] MEDS ORDERED: normal saline 1000ml 1,000 ML IV ONE (07:55)
[2020-11-14] MEDS ORDERED: ondansetron/PF 4mg/2ml inj IV ONE (07:55)
[2020-11-14] MEDS: haloperidol lactate 5mg/ml inj IM ONE ×2 (08:27→08:28)
[2020-11-14 08:40] LABS: ALANINE AMINOTRANSFERASE 23 U/L (12-78); ALBUMIN 4.3 G/DL (3.4-5.0); ALBUMIN/GLOBULIN RATIO 1.2 (1.1-1.5); ALKALINE PHOSPHATASE 84 IU/L (46-116); ANION GAP 13 (8-16); ASPARTATE AMINO TRANSFERASE 17 U/L (10-37); BILIRUBIN,TOTAL 0.4 MG/DL (0.1-1.0); BLOOD UREA NITROGEN 20 MG/DL (7-18); BUN/CREATININE RATIO 24.1 (6.6-38.0); CALCIUM 9.2 MG/DL (8.5-10.1); CHLORIDE 101 MMOL/L (99-107); CREATININE 0.83 MG/DL (0.40-0.90); GLUCOSE 154 MG/DL (70-104); POTASSIUM 3.8 MMOL/L (3.5-5.1); SODIUM 140 MMOL/L (135-145); eGFR 77 ML/MIN
[2020-11-14 08:42] LABS: BASOPHILS % (AUTO) 0.2 % (0-1); EOSINOPHILS % (AUTO) 0 % (0-6); HEMATOCRIT 40.1 % (35.0-45.0); HEMOGLOBIN 13.3 g/dl (12.0-16.0); LYMPHOCYTES # (AUTO) 0.9 X10'3 (1.1-4.8); LYMPHOCYTES % (AUTO) 5.7 % (21-51); MEAN CORPUSCULAR HGB CONC 33.1 g/dL (33.0-36.5); MEAN CORPUSCULAR VOLUME 90.7 FL (78-98); MEAN PLATELET VOLUME 7.9 FL (7.4-10.4); MONOCYTES # (AUTO) 0.5 X10'3 (0-0.9); MONOCYTES % (AUTO) 3.6 % (2-12); NEUTROPHILS # (AUTO) 13.6 X10'3 (1.8-7.7); NEUTROPHILS % (AUTO) 90.5 % (42-75); PLATELET COUNT 375 X10'3 (140-440); RED BLOOD COUNT 4.42 X10'6 (4.20-5.60); RED CELL DISTRIBUTION WIDTH 13.5 % (11.5-14.5); WHITE BLOOD COUNT 15.1 X10'3 (4.5-11.0)
[2020-11-14 09:27] LABS: URINE HCG NEGATIVE (NEG)
[2020-11-14 09:36] LABS: URINE AMPHETAMINE SCREEN NEGATIVE (Neg); URINE BARBITUATE SCREEN NEGATIVE (Neg); URINE BENZODIAZEPINES SCREEN NEGATIVE (Neg); URINE CANNABINOID SCREEN POSITIVE (Neg); URINE COCAINE SCREEN NEGATIVE (Neg); URINE METHADONE SCREEN NEGATIVE (Neg); URINE OPIATE SCREEN NEGATIVE (Neg); URINE PHENCYCLIDINE SCREEN NEGATIVE (Neg)
[2020-11-14 09:38] LABS: CLARITY,URINE SLIGHTLY CLOUDY (Clear); COLOR,URINE YELLOW (Yellow); GLUCOSE, URINE NEGATIVE (Neg); KETONES,URINE 15 mg/dl (Neg); LEUKOCYTE ESTERASE ,URINE NEGATIVE (Neg); NITRITES, URINE NEGATIVE (Neg); OCCULT BLOOD,URINE NEGATIVE (Neg); PH,URINE 7.5 (4.8-8.0); PROTEIN,URINE 100 mg/dl (Neg); UROBILINOGEN,URINE 0.2 E.U/dL (0.2-1.0)
[2020-11-14 09:44] LABS: UA COLLECTION TYPE STRAIGHT CATH
[2020-11-14 09:55] LABS: MUCUS STRANDS MANY /LPF (Neg); SQUAMOUS EPITHELIAL CELL,UR MODERATE /LPF (FEW)
[2020-11-14 09:58] LABS: BACTERIA,URINE FEW /HPF (Neg); RBC,URINE 0-2 /HPF (0-2); WBC,URINE 0-4 /HPF (0-4)
[2020-11-14 10:07] VITALS: BP 142/79
== END 2020-11-14 10:08 | disposition home or self-care (01) ==
LOC: ER 07:16
DX: R11.15 Cyclical vomiting syndrome unrelated to migraine (principal); Z87.410 Personal history of cervical dysplasia; I10 Essential (primary) hypertension; F41.9 Anxiety disorder, unspecified; F12.90 Cannabis use, unspecified, uncomplicated; Z87.01 Personal history of pneumonia (recurrent); Z90.49 Acquired absence of other specified parts of digestive tract; Z98.61 Coronary angioplasty status; Z72.89 Other problems related to lifestyle; Z56.0 Unemployment, unspecified; Z88.6 Allergy status to analgesic agent; Z88.8 Allergy status to other drugs, medicaments and biological substances; Z79.899 Other long term (current) drug therapy; Z86.69 Personal history of other diseases of the nervous system and sense organs
CPT/HCPCS: 36415; 80053; 80305; 81001; 81025; 85025; 96361; 96374; 96375; 99284; J1200; J2060; J2405; J2765; J7030; J1630

== ENCOUNTER 2021-03-11 18:05 | Emergency (ER) | payer MEDICAID ==
[~2021-03-11] VITALS: Ht 170.2 cm; Wt 63.6 kg
[2021-03-11] MEDS ORDERED: ondansetron/PF 4mg/2ml inj IV ONE (19:05)
[2021-03-11] MEDS ORDERED: LORazepam 2 mg/ml vial IV ONE (19:05)
[2021-03-11] MEDS ORDERED: normal saline 1000ML IV soln IVB ONE ×2 (19:05→20:25)
[2021-03-11 19:57] LABS: BASOPHILS % (AUTO) 0.2 % (0-1); EOSINOPHILS % (AUTO) 0 % (0-6); HEMATOCRIT 42.9 % (35.0-45.0); HEMOGLOBIN 14.5 g/dl (12.0-16.0); LYMPHOCYTES # (AUTO) 0.9 X10'3 (1.1-4.8); LYMPHOCYTES % (AUTO) 6.6 % (21-51); MEAN CORPUSCULAR HEMOGLOBIN 29.7 PG (27.0-31.0); MEAN CORPUSCULAR HGB CONC 33.7 g/dL (33.0-36.5); MEAN CORPUSCULAR VOLUME 88.1 FL (78-98); MEAN PLATELET VOLUME 7.8 FL (7.4-10.4); MONOCYTES # (AUTO) 0.9 X10'3 (0-0.9); MONOCYTES % (AUTO) 6.4 % (2-12); NEUTROPHILS # (AUTO) 12.3 X10'3 (1.8-7.7); NEUTROPHILS % (AUTO) 86.8 % (42-75); PLATELET COUNT 437 X10'3 (140-440); RED BLOOD COUNT 4.86 X10'6 (4.20-5.60); RED CELL DISTRIBUTION WIDTH 13.2 % (11.5-14.5); WHITE BLOOD COUNT 14.2 X10'3 (4.5-11.0)
[2021-03-11] MEDS ORDERED: levetiracetam-NS 1000mg/100ml 100 ML IV SCH (20:00)
[2021-03-11 20:05] LABS: ALANINE AMINOTRANSFERASE 38 U/L (12-78); ALBUMIN 4.4 G/DL (3.4-5.0); ALBUMIN/GLOBULIN RATIO 1.2 (1.1-1.5); ALKALINE PHOSPHATASE 87 IU/L (46-116); ANION GAP 10 (8-16); ASPARTATE AMINO TRANSFERASE 24 U/L (10-37); BILIRUBIN,TOTAL 0.6 MG/DL (0.1-1.0); BLOOD UREA NITROGEN 21 MG/DL (7-18); BUN/CREATININE RATIO 25.3 (6.6-38.0); CALCIUM 9.8 MG/DL (8.5-10.1); CHLORIDE 94 MMOL/L (99-107); CREATININE 0.83 MG/DL (0.40-0.90); GLUCOSE 105 MG/DL (70-104); LIPASE 83 U/L (73-393); POTASSIUM 3.3 MMOL/L (3.5-5.1); SODIUM 136 MMOL/L (135-145); TOTAL CARBON DIOXIDE 32.5 MMOL/L (24-32); TOTAL PROTEIN 8.2 G/DL (6.4-8.2); eGFR 77 ML/MIN
--- NOTE | 2021-03-11 21:25 | NUR ---
Pt ambulatory to and from bathroom with minimal assistance- accompanied by family. Urine specimen collected and sent to lab.
[2021-03-11 21:34] LABS: COLOR,URINE YELLOW (Yellow); GLUCOSE, URINE NEGATIVE (Neg); KETONES,URINE 15 mg/dl (Neg); LEUKOCYTE ESTERASE ,URINE SMALL (Neg); NITRITES, URINE NEGATIVE (Neg); OCCULT BLOOD,URINE TRACE-LYSED (Neg); PROTEIN,URINE 30 mg/dl (Neg)
[2021-03-11 21:35] LABS: CLARITY,URINE SLIGHTLY CLOUDY (Clear); UA COLLECTION TYPE NON-SPECIFIED
[2021-03-11 21:41] LABS: BACTERIA,URINE FEW /HPF (Neg); RBC,URINE 0-2 /HPF (0-2); RENAL CELLS, URINE FEW /HPF; SQUAMOUS EPITHELIAL CELL,UR FEW /LPF (FEW); WBC,URINE 20-30 /HPF (0-4)
--- NOTE | 2021-03-11 21:50 | NUR ---
Pt has been drinking water- tolerated well. Waiting for fluid bolus to complete.
[2021-03-11] MEDS ORDERED: PROM25SU9 RC (22:43)
[2021-03-11] MEDS ORDERED: ONDA4TAB6 PO (22:43)
[2021-03-11 23:00] VITALS: BP 116/75
== END 2021-03-11 23:02 | disposition home or self-care (01) ==
LOC: ER 18:06
DX: R11.15 Cyclical vomiting syndrome unrelated to migraine (principal); E86.0 Dehydration; R10.84 Generalized abdominal pain; R50.9 Fever, unspecified; R11.2 Nausea with vomiting, unspecified; I10 Essential (primary) hypertension; F41.9 Anxiety disorder, unspecified; F12.90 Cannabis use, unspecified, uncomplicated; Z86.69 Personal history of other diseases of the nervous system and sense organs; Z87.01 Personal history of pneumonia (recurrent); Z85.41 Personal history of malignant neoplasm of cervix uteri; Z90.89 Acquired absence of other organs; Z90.49 Acquired absence of other specified parts of digestive tract; Z98.51 Tubal ligation status; Z72.89 Other problems related to lifestyle; Z56.0 Unemployment, unspecified; Z88.5 Allergy status to narcotic agent; Z88.8 Allergy status to other drugs, medicaments and biological substances; Z79.899 Other long term (current) drug therapy
CPT/HCPCS: 36415; 80053; 81001; 83690; 83735; 85025; 87088; 96361; 96365; 96375; 99285; J1953; J2060; J2405; J7030; 87077; 87186

== ENCOUNTER 2021-03-22 18:27 | Emergency (ER) | payer MEDICAID ==
[~2021-03-22] VITALS: Ht 170.2 cm; Wt 63.6 kg
[~2021-03-22 18:27] MED LIST changes: -DIPH25CA83 PO; -HALO1TAB PO; -LEVE100S21 CORPAK; +ONDA4TAB6 PO; -PANT-47 PO
[2021-03-22] MEDS ORDERED: ondansetron/PF 4mg/2ml inj IV ONE (19:15)
[2021-03-22] MEDS ORDERED: normal saline 1000ML IV soln IVB ONE ×2 (19:15→23:05)
[2021-03-22] MEDS ORDERED: LORazepam 2 mg/ml vial IV ONE (19:15)
[2021-03-22] MEDS ORDERED: ketorolac tromethamine 15mg/ml inj. IV ONE (19:20)
[2021-03-22 19:39] LABS: BASOPHILS # (AUTO) 0.1 X10'3 (0-0.2); BASOPHILS % (AUTO) 0.5 % (0-1); EOSINOPHILS % (AUTO) 0 % (0-6); HEMATOCRIT 41.5 % (35.0-45.0); HEMOGLOBIN 13.9 g/dl (12.0-16.0); LYMPHOCYTES # (AUTO) 0.9 X10'3 (1.1-4.8); LYMPHOCYTES % (AUTO) 6.4 % (21-51); MEAN CORPUSCULAR HEMOGLOBIN 29.6 PG (27.0-31.0); MEAN CORPUSCULAR HGB CONC 33.4 g/dL (33.0-36.5); MEAN CORPUSCULAR VOLUME 88.7 FL (78-98); MEAN PLATELET VOLUME 7.2 FL (7.4-10.4); MONOCYTES # (AUTO) 0.6 X10'3 (0-0.9); MONOCYTES % (AUTO) 4.3 % (2-12); NEUTROPHILS # (AUTO) 12.2 X10'3 (1.8-7.7); NEUTROPHILS % (AUTO) 88.8 % (42-75); PLATELET COUNT 324 X10'3 (140-440); RED BLOOD COUNT 4.68 X10'6 (4.20-5.60); RED CELL DISTRIBUTION WIDTH 13.5 % (11.5-14.5); WHITE BLOOD COUNT 13.8 X10'3 (4.5-11.0)
[2021-03-22 19:59] LABS: PARTIAL THROMBOPLASTIN TIME 24 SECONDS (22-32)
[2021-03-22 20:00] LABS: ALANINE AMINOTRANSFERASE 15 U/L (12-78); ALBUMIN 3.7 G/DL (3.4-5.0); ALBUMIN/GLOBULIN RATIO 1.2 (1.1-1.5); ALKALINE PHOSPHATASE 68 IU/L (46-116); ANION GAP 11 (8-16); ASPARTATE AMINO TRANSFERASE 20 U/L (10-37); BILIRUBIN,TOTAL 0.6 MG/DL (0.1-1.0); BLOOD UREA NITROGEN 9 MG/DL (7-18); BUN/CREATININE RATIO 12.5 (6.6-38.0); CHLORIDE 101 MMOL/L (99-107); CREATININE 0.72 MG/DL (0.40-0.90); GLUCOSE 127 MG/DL (70-104); POTASSIUM 3.3 MMOL/L (3.5-5.1); SODIUM 140 MMOL/L (135-145); TOTAL CARBON DIOXIDE 27.9 MMOL/L (24-32); TOTAL PROTEIN 6.8 G/DL (6.4-8.2); eGFR > 90 ML/MIN
[2021-03-22] MEDS ORDERED: levetiracetam inj 1,000 MG in normal saline 100ml IV soln 90 ML IV SCH (20:00)
--- NOTE | 2021-03-22 23:38 | NUR ---
ED provider at bedside for patient reassessment and discussion of plan of care.
[2021-03-22] MEDS ORDERED: ONDA4TAB12 PO (23:44)
[2021-03-22 23:55] VITALS: BP 161/111
== END 2021-03-22 23:53 | disposition home or self-care (01) ==
LOC: ER 18:27
DX: R11.15 Cyclical vomiting syndrome unrelated to migraine (principal); I10 Essential (primary) hypertension; F41.9 Anxiety disorder, unspecified; F12.90 Cannabis use, unspecified, uncomplicated; Z86.69 Personal history of other diseases of the nervous system and sense organs; Z87.01 Personal history of pneumonia (recurrent); Z85.41 Personal history of malignant neoplasm of cervix uteri; Z90.89 Acquired absence of other organs; Z90.49 Acquired absence of other specified parts of digestive tract; Z98.51 Tubal ligation status; Z72.89 Other problems related to lifestyle; Z56.0 Unemployment, unspecified; Z88.5 Allergy status to narcotic agent; Z88.8 Allergy status to other drugs, medicaments and biological substances; Z79.899 Other long term (current) drug therapy
CPT/HCPCS: 36415; 80053; 85025; 85610; 85730; 96361; 96365; 96375; 99285; J1885; J1953; J2060; J2405; J7030

== ENCOUNTER 2021-03-25 17:12 | Emergency (ER) | payer MEDICAID ==
[~2021-03-25] VITALS: Ht 170.2 cm; Wt 59.1 kg
[~2021-03-25 17:12] MED LIST changes: +ONDA4TAB12 PO
[2021-03-25] MEDS ORDERED: LORazepam 2 mg/ml vial IV ONE (17:30)
[2021-03-25] MEDS ORDERED: levetiracetam inj 500 MG in normal saline 100ml IV soln 95 ML IV ONE ×2 (17:30→17:35)
[2021-03-25] MEDS ORDERED: ondansetron/PF 4mg/2ml inj IV ONE (17:30)
[2021-03-25] MEDS ORDERED: normal saline 1000ML IV soln IVB ONE (17:30)
[2021-03-25] MEDS ORDERED: Levetiracetam-NS 500mg/100ml 100 ML IV ONE (17:32)
[2021-03-25] MEDS ORDERED: PROM25SU51 RC (17:35)
[2021-03-25] MEDS ORDERED: ONDA-103 PO (17:36)
[2021-03-25 17:48] LABS: BASOPHILS # (AUTO) 0.1 X10'3 (0-0.2); BASOPHILS % (AUTO) 1.2 % (0-1); EOSINOPHILS % (AUTO) 0.2 % (0-6); HEMOGLOBIN 14.3 g/dl (12.0-16.0); LYMPHOCYTES # (AUTO) 1.2 X10'3 (1.1-4.8); LYMPHOCYTES % (AUTO) 16.5 % (21-51); MEAN CORPUSCULAR HEMOGLOBIN 29.9 PG (27.0-31.0); MEAN CORPUSCULAR HGB CONC 34.1 g/dL (33.0-36.5); MEAN CORPUSCULAR VOLUME 87.8 FL (78-98); MEAN PLATELET VOLUME 7.3 FL (7.4-10.4); MONOCYTES # (AUTO) 0.6 X10'3 (0-0.9); MONOCYTES % (AUTO) 8.5 % (2-12); NEUTROPHILS # (AUTO) 5.3 X10'3 (1.8-7.7); NEUTROPHILS % (AUTO) 73.6 % (42-75); PLATELET COUNT 361 X10'3 (140-440); RED BLOOD COUNT 4.78 X10'6 (4.20-5.60); RED CELL DISTRIBUTION WIDTH 13.4 % (11.5-14.5); WHITE BLOOD COUNT 7.3 X10'3 (4.5-11.0)
[2021-03-25 18:03] LABS: ALANINE AMINOTRANSFERASE 15 U/L (12-78); ALBUMIN/GLOBULIN RATIO 1.2 (1.1-1.5); ALKALINE PHOSPHATASE 70 IU/L (46-116); ANION GAP 11 (8-16); ASPARTATE AMINO TRANSFERASE 18 U/L (10-37); BILIRUBIN,TOTAL 0.5 MG/DL (0.1-1.0); BLOOD UREA NITROGEN 12 MG/DL (7-18); BUN/CREATININE RATIO 16.7 (6.6-38.0); CALCIUM 9.1 MG/DL (8.5-10.1); CHLORIDE 100 MMOL/L (99-107); CREATININE 0.72 MG/DL (0.40-0.90); GLUCOSE 101 MG/DL (70-104); POTASSIUM 3.3 MMOL/L (3.5-5.1); SODIUM 139 MMOL/L (135-145); TOTAL PROTEIN 7.3 G/DL (6.4-8.2); eGFR > 90 ML/MIN
[2021-03-25 19:33] LABS: CLARITY,URINE CLOUDY (Clear); COLOR,URINE YELLOW (Yellow); GLUCOSE, URINE NEGATIVE (Neg); KETONES,URINE >=80 mg/dl (Neg); LEUKOCYTE ESTERASE ,URINE NEGATIVE (Neg); NITRITES, URINE NEGATIVE (Neg); OCCULT BLOOD,URINE LARGE (Neg); PROTEIN,URINE TRACE mg/dl (Neg); UA COLLECTION TYPE CLN CATCH MIDSTREAM; UROBILINOGEN,URINE 0.2 E.U/dL (0.2-1.0)
[2021-03-25 19:42] LABS: AMORPHOUS PHOSPHATES 3+; BACTERIA,URINE 3+ /HPF (Neg); MUCUS STRANDS NONE SEEN /LPF (Neg); SQUAMOUS EPITHELIAL CELL,UR MANY /LPF (FEW)
[2021-03-25 19:43] LABS: RBC,URINE 50-100 /HPF (0-2)
[2021-03-25 19:45] LABS: WBC,URINE 0-4 /HPF (0-4)
[2021-03-25 20:04] VITALS: BP 148/109
== END 2021-03-25 20:05 | disposition home or self-care (01) ==
LOC: ER 17:13
DX: R11.2 Nausea with vomiting, unspecified (principal); R56.9 Unspecified convulsions; I10 Essential (primary) hypertension; F41.9 Anxiety disorder, unspecified; F12.90 Cannabis use, unspecified, uncomplicated; Z90.49 Acquired absence of other specified parts of digestive tract; Z98.51 Tubal ligation status; Z72.89 Other problems related to lifestyle; Z56.0 Unemployment, unspecified; Z79.899 Other long term (current) drug therapy; Z88.8 Allergy status to other drugs, medicaments and biological substances; Z88.5 Allergy status to narcotic agent
CPT/HCPCS: 36415; 80053; 81001; 85025; 93005; 96374; 96375; 99284; J1953; J2060; J2405; J7030

== ENCOUNTER 2021-11-13 16:17 | Emergency (ER) | payer MEDICAID ==
[~2021-11-13] VITALS: Ht 180.3 cm; Wt 63.6 kg
[~2021-11-13 16:17] MED LIST changes: -LEVE500T PO; -METO-292 PO; +ONDA-103 PO; -ONDA4TAB12 PO; -ONDA4TAB6 PO; -ONDA8TAB6 PO; +PROM25SU51 RC; -PROM25SU9 RC
[2021-11-13 17:00] VITALS: BP 144/100
[2021-11-13] MEDS ORDERED: ringers solution, lactated 1000ml IV soln IV ONE (17:00)
[2021-11-13] MEDS ORDERED: metoclopramide 5 mg/ml inj IV ONE (17:00)
[2021-11-13 18:14] LABS: BASOPHILS % (AUTO) 0.1 % (0-1); EOSINOPHILS % (AUTO) 0 % (0-6); HEMATOCRIT 39.8 % (35.0-45.0); HEMOGLOBIN 13.7 g/dl (12.0-16.0); LYMPHOCYTES # (AUTO) 0.5 X10'3 (1.1-4.8); LYMPHOCYTES % (AUTO) 2.4 % (21-51); MEAN CORPUSCULAR HEMOGLOBIN 29.8 PG (27.0-31.0); MEAN CORPUSCULAR HGB CONC 34.3 g/dL (33.0-36.5); MEAN CORPUSCULAR VOLUME 86.8 FL (78-98); MEAN PLATELET VOLUME 7.7 FL (7.4-10.4); MONOCYTES # (AUTO) 0.4 X10'3 (0-0.9); MONOCYTES % (AUTO) 1.8 % (2-12); NEUTROPHILS # (AUTO) 19.1 X10'3 (1.8-7.7); NEUTROPHILS % (AUTO) 95.7 % (42-75); PLATELET COUNT 420 X10'3 (140-440); RED BLOOD COUNT 4.59 X10'6 (4.20-5.60); RED CELL DISTRIBUTION WIDTH 14.1 % (11.5-14.5); WHITE BLOOD COUNT 19.9 X10'3 (4.5-11.0)
[2021-11-13 18:28] LABS: ALANINE AMINOTRANSFERASE 26 U/L (12-78); ALBUMIN 4.4 G/DL (3.4-5.0); ALBUMIN/GLOBULIN RATIO 1.1 (1.1-1.5); ALKALINE PHOSPHATASE 83 IU/L (46-116); ANION GAP 10 (8-16); ASPARTATE AMINO TRANSFERASE 21 U/L (10-37); BILIRUBIN,TOTAL 0.5 MG/DL (0.1-1.0); BLOOD UREA NITROGEN 27 MG/DL (7-18); BUN/CREATININE RATIO 31.8 (6.6-38.0); CALCIUM 9.5 MG/DL (8.5-10.1); CHLORIDE 102 MMOL/L (99-107); CREATININE 0.85 MG/DL (0.40-0.90); GLUCOSE 154 MG/DL (70-104); POTASSIUM 4.3 MMOL/L (3.5-5.1); SODIUM 139 MMOL/L (135-145); TOTAL CARBON DIOXIDE 27.2 MMOL/L (24-32); TOTAL PROTEIN 8.4 G/DL (6.4-8.2); eGFR 75 ML/MIN
[2021-11-13] MEDS ORDERED: ONDA4TAB12 PO (18:59)
[2021-11-13] MEDS ORDERED: KEP500T PO (19:00)
[2021-11-13] MEDS ORDERED: levetiracetam-NS 1000mg/100ml 100 ML IV SCH (20:00)
[2021-11-13] MEDS ORDERED: levetiracetam inj 1,000 MG in normal saline 100ml IV soln 90 ML IV SCH (20:00)
== END 2021-11-13 19:53 | disposition left against medical advice (07) ==
LOC: ER 16:17
DX: F12.188 Cannabis abuse with other cannabis-induced disorder (principal); R56.9 Unspecified convulsions; K29.00 Acute gastritis without bleeding; I10 Essential (primary) hypertension; F41.9 Anxiety disorder, unspecified; Z88.5 Allergy status to narcotic agent; Z88.8 Allergy status to other drugs, medicaments and biological substances
CPT/HCPCS: 36415; 80053; 85025; 96374; 99283; J2765; J7120; 96361

== ENCOUNTER 2025-02-07 23:39 | Emergency (ER) | payer MEDICAID ==
[~2025-02-07] VITALS: Ht 170.2 cm; Wt 53.5 kg
[~2025-02-07 23:39] MED LIST changes: +KEP500T PO; +ONDA-243 PO
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
[2025-02-08] MEDS: diazepam 5mg tablet PO ONE (01:17)
[2025-02-08] MEDS: HYDROcodone/acetaminophen 10/325mg tab PO ONE (01:18)
[2025-02-08] MEDS ORDERED: HYDR-3965 PO (02:05)
[2025-02-08] MEDS ORDERED: CEPH-585 PO (02:08)
[2025-02-08 02:40] VITALS: BP 133/86; PULSE 90; RESP 16; TEMP 98.6; O2SAT 98
--- NOTE | 2025-02-08 04:04 | RADIOLOGY REPORT ---
Clinical History knee only right patella Comparison None Technique: Contiguous axial CT images of the right knee without intravenous contrast administration. Coronal and sagittal reformation was performed. All CT scans at this medical facility are performed using dose modulation techniques as appropriate t o a performed exam including the following: Automated exposure control was utilized; adjustment of th e mA and/or kV according to patient size; and use of iterative reconstruction technique. All CT studies are reported to the Dose Index Registry of the [employer]. Without Contrast Radiation Dose: CTDI (mGy): 16.76; DLP (mGy-cm): 496.12 TOYIN BARRIENTOS, [id number] Findings: No acute fracture, dislocation, soft tissue swelling, or bony destructive lesion is present. Impression: 1. No acute bony abnormality. This report was electronically signed by Braxton Robin MD on 02/08/2025 4:01:09 AM.
--- NOTE | 2025-02-08 04:22 | RADIOLOGY REPORT ---
Clinical History KNEE PAIN Comparison None Without Contrast TOYIN BARRIENTOS, [id number] TECHNIQUE: 3 view of the knee FINDINGS: There is no acute fracture or dislocation. Joint spaces are preserved. There is no appreciable joint effusion. Soft tissue is unremarkable. No radiopaque foreign body seen. IMPRESSION: No acute osseous abnormality. This report was electronically signed by Jacinto Beebe MD on 02/08/2025 4:19:43 AM.
--- NOTE | 2025-02-08 04:24 | RADIOLOGY REPORT ---
Clinical History TOE PAIN Comparison None Without Contrast TOYIN BARRIENTOS, [id number] TECHNIQUE: 3 view of the first toe FINDINGS: Nondisplaced fracture of the distal tuft of the first digit. Joint spaces are preserved. Soft tissue is unremarkable. No radiopaque foreign body seen. IMPRESSION: Nondisplaced fracture of the distal tuft of the first digit. This report was electronically signed by Jacinto Beebe MD on 02/08/2025 4:20:23 AM.
== END 2025-02-08 02:43 | disposition home or self-care (01) ==
LOC: ER 23:40
DX: S92.424A Nondisplaced fracture of distal phalanx of right great toe, initial encounter for closed fracture (principal); S80.01XA Contusion of right knee, initial encounter; F12.90 Cannabis use, unspecified, uncomplicated; F15.90 Other stimulant use, unspecified, uncomplicated; I10 Essential (primary) hypertension; Z85.41 Personal history of malignant neoplasm of cervix uteri; Z88.5 Allergy status to narcotic agent; Z88.8 Allergy status to other drugs, medicaments and biological substances; Z90.49 Acquired absence of other specified parts of digestive tract; Z98.51 Tubal ligation status; V00.841A Fall from standing electric scooter, initial encounter; Y93.89 Activity, other specified; Y92.89 Other specified places as the place of occurrence of the external cause; Y99.8 Other external cause status
CPT/HCPCS: 11740; 73564; 73660; 73700; 99284; L3260; A6258; A6449